=== PATIENT | female | born 1955 | race Caucasian/White ===

== ENCOUNTER 2019-06-11 12:37 | Emergency (ER) | payer OTHER ==
[2019-06-11 14:34] VITALS: BP 107/53; TEMP 101.4; O2SAT 95
== END 2019-06-11 14:25 | disposition home or self-care (01) ==
LOC: ER 12:37
DX: J06.9 Acute upper respiratory infection, unspecified (principal); Z20.828 Contact with and (suspected) exposure to other viral communicable diseases
CPT/HCPCS: 71045; 87070; 87081; 87804; 99284; U0001

== ENCOUNTER 2019-06-13 09:56 | Inpatient (IN) | payer OTHER ==
--- OUTSIDE RECORDS SUMMARY | 2019-06-13 09:58 | XMS REPORT ---
:1955 Author Organization [facility] t Address Formerly [facility], [facility] [place] [address] Care Team Providers Name Role Phone Unavailable Unavailable Unavailable Problems Condition Condition Condition Status Onset Resolution Last Treatin g Comments Name Details Category Date Date Treatment Clinician Date Primary Primary Problem Active osteoarthri osteoarthri tis of tis of right knee right knee Pain, Pain, Diagnosis Active joint, joint, knee, right knee, right Allergies, Adverse Reactions, Alerts This patient has no known allergies or adverse reactions. Medications Ordered Filled Start Stop Current Ordering Indication Dosage Frequency Signature Comments Components Medication Medication Date Date Medication? Clinician (SIG) Name Name Amlodipine Amlodipine Yes Gaudencio not Besylate Besylate Young defined Hydrochloro Hydrochloro Yes Gaudencio not thiazide thiazide Young defined losartan losartan Yes Gaudencio not Young defined Carisoprodo Carisoprodo Yes Gaudencio not l l Young defined [place] Yes Gaudencio not Young defined Diclofenac Diclofenac Yes Gaudencio not Sodium ER Sodium ER Young defined atorvastati atorvastati Yes Gaudencio not n n Young defined Encounters Start End Encounter Admission Attending Care Care Encounter Date/Time Date/Time Type Type Clinicians Facility Department ID 2018-10-29 2018-10-29 [id number] 13:30:00 13:30:00 [facility] 2018-10-22 2018-10-22 [id number] 15:00:00 15:00:00 [facility] 2018-10-15 2018-10-15 [id number] 08:00:00 08:00:00 [facility]
--- OUTSIDE RECORDS SUMMARY | 2019-06-13 09:59 | XMS REPORT ---
:1955 Author Organization [employer] Care Team Providers Name Role Phone Gaudencio Young Provider Role Unavailable Allergies, Adverse Reactions, Alerts Substance Reaction Event Type N.K.D.A. Info Not Available Non Drug Allergy Problems Problem Type Condition Code Onset Dates Condition Statu s Assessment Primary osteoarthritis of right M17.11 Active knee Problem Primary osteoarthritis of right M17.11 Active knee Assessment Pain, joint, knee, right M25.561 Act matt Medications Medication Code Code Instructions Start End Status Dosage System Date Date Amlodipine Besylate NDC 0 Active not defined losartan NDC 0 Active [place] [address]-89 Active no t 97-30 defined Carisoprodol [facility] 13360-07 Active not 34-01 [place] [address]-10 Active not 21-01 defined atorvastatin NDC 0 [place] [address]-84 Active not 20-11 defined Results No Known Results Summary Purpose [employer] Submission
[2019-06-13] MEDS ORDERED: NA CHLORIDE 0.9% 1,000 ML ONE ×3 (11:13→14:08)
[2019-06-13 11:37] LABS: Absolute Lymphocytes (CBC) 0.7 K/uL (0.7-4.9); Basophils % 0.3 % (0-1.3); Hematocrit 35.4 % (36.0-45.0); Lymphocytes % 7.9 % (15.3-44.8); MPV 7.2 fL (7.6-11.3)
[2019-06-13 11:41] LABS: Protime INR 1.16
--- NOTE | 2019-06-13 12:09 | RAD REPORT ---
EXAM DESCRIPTION: Maurizio Single View06/13/2019 11:55 am CLINICAL HISTORY: Cough COMPARISON: June 10 FINDINGS: The lungs appear clear of acute infiltrate. The heart is normal size IMPRESSION: No acute abnormalities displayed
[2019-06-13 12:13] LABS: Albumin 2.7 g/dL (3.4-5.0); Bilirubin Direct 0.5 mg/dL (0-0.2); Magnesium 1.5 mg/dL (1.8-2.4); Protein, Total 6.7 g/dL (6.4-8.2); Troponin (Emerg Dept Use Only) 0.4 ng/mL (0.0-0.045)
[2019-06-13 12:16] LABS: Potassium 2.7 mmol/L (3.5-5.1)
[2019-06-13 12:53] LABS: Platelet Estimate ADEQ; Urine White Blood Cell Casts OK
[2019-06-13 12:54] LABS: Blood Morphology Comment NOT SEEN (NOT SEEN)
[2019-06-13] MEDS ORDERED: POTASSIUM 25 MEQ EFFERV TAB ONE (12:54)
[2019-06-13] MEDS ORDERED: KCL 20 MEQ/100 mL IVPB 20 MEQ/100 ML BAG IV ONE (12:55)
[2019-06-13] MEDS ORDERED: Magnesium Sulfate 2gm IVPB 2 G/50 ML BAG IV ONE (12:55)
--- NOTE | 2019-06-13 13:11 | RAD REPORT ---
EXAM DESCRIPTION: CT - Chest Abdomen Pelvis W Cont - 06/13/2019 12:47 pm CLINICAL HISTORY: DYSPNEA, fever and cough for 4 days, abdominal and pelvic pain COMPARISON: No comparisons TECHNIQUE: Following dynamic enhancement using 100 milliliters nonionic IV contrast, axial imaging o f the chest, abdomen and pelvis was performed. Biphasic technique was utilized through the abdomen. Oral contrast was administered. All CT scans are performed using dose optimization technique as appropriate and may include automated exposure control or mA/KV adjustment according to patient size. FINDINGS: Lungs are clear of mass and infiltrate. No pleural effusion, pleural thickening or pneumot horax. No significant aortic or pulmonary arterial tree finding. Mediastinal and hilar regions show n o mass or abnormal lymphadenopathy. No chest wall mass or axillary lymphadenopathy. Normal size liver shows borderline to mild fatty infiltration. No suspicious liver lesion. Spleen and pancreas show no suspicious findings. Gallbladder and biliary tree are unremarkable. Gallstones can be occult on CT imaging. No hydronephrosis present. Right kidney shows a normal enhancement pattern. Heterogeneous enhancement of the left kidney is present. A cyst present in the posterior upper pole of the left kidney. No hyd ronephrosis. No obstructing or nonobstructing calculus. Lu of the left ureter show mild enhancemen t. Right ureter is unremarkable. Urinary bladder is difficult to assess. Bladder is mostly contracted . This accentuates the wall thickness. Lobulated uterus is present indicating multiple small fibroids. Primary ovarian process is not identi fied. No dilated bowel loops or focal bowel wall thickening. Diverticulosis present without diverticulitis. Postsurgical changes noted to the stomach. No acute GI findings seen. Slight wedging of the L1 body is present believed to be chronic. Posterior wall height is preserved. Anterior subluxation of 6 mm noted in the L4 body. This is secondary to prominent facet degenerative change. The L4-5 disc space show significant degenerative disc disease. Acute or pathologic bone proc ess is not seen. Prominent arterial tree calcifications are seen. No aneurysm or acute vascular finding. IMPRESSION: Acute left kidney pyelonephritis and left ureteritis. No abscess or emergent complicatio n. Urinary bladder is only partially filled. No cystitis can be confirmed. No right-sided pyelonephritis . No acute or significant CT chest finding. Borderline to mild fatty infiltration of the liver. Multi fibroid uterus. 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
--- NOTE | 2019-06-13 13:28 | EDPHYS ---
Physician Documentation [facility] Name: Rosario Pleitez Age: 64 yrs Sex: Female : 1955 Arrival Date: 06/13/2019 Time: 09:59 Bed 19 Private MD: None, None ED Physician Willie Hastings HPI: 06/12 11:14 This 64 yrs old Female presents to ER via Wheelchair with complaints of jr8 Fever, Cough. 11:14 The patient reports fever, not measured (subjective). Onset: The symptoms/episode jr8 began/occurred suddenly, 4 day(s) ago. Modifying factors: there are no obvious modifying factors. Associated signs and symptoms: Pertinent positives: chills, cough, decrease in taste . Severity of symptoms: At their worst the symptoms were moderate in the emergency department the symptoms are unchanged. The patient has not experienced similar symptoms in the past. The patient has been recently seen by a physician:. Patient was seen two days ago and tested for flu, strep, COVID, and had CXR completed. No acute findings and initial COVID results were negative. Came back to ED today for worsening of cough and persistent fevers . Historical: - Allergies: 10:16 No Known Allergies; bp - PMHx: 10:16 Arthritis; Hypertension; bp - Immunization history:: Adult Immunizations up to date. - Social history:: Smoking status: unknown. ROS: 11:14 Eyes: Negative for injury, pain, redness, and discharge, ENT: Negative for injury, jr8 pain, and discharge, Neck: Negative for injury, pain, and swelling, Cardiovascular: Negative for chest pain, palpitations, and edema, Abdomen/GI: Negative for abdominal pain, nausea, vomiting, diarrhea, and constipation, Back: Negative for injury and pain, MS/Extremity: Negative for injury and deformity, Skin: Negative for injury, rash, and discoloration, Neuro: Negative for headache, weakness, numbness, tingling, and seizure. 11:14 Constitutional: Positive for fatigue, fever, malaise. 11:14 Respiratory: Positive for cough. Exam: 11:14 Eyes: Pupils equal round and reactive to light, extra-ocular motions intact. Lids and jr8 lashes normal. Conjunctiva and sclera are non-icteric and not injected. Cornea within normal limits. Periorbital areas with no swelling, redness, or edema. ENT: Nares patent. No nasal discharge, no septal abnormalities noted. Tympanic membranes are normal and external auditory canals are clear. Oropharynx with no redness, swelling, or masses, exudates, or evidence of obstruction, uvula midline. Mucous membranes moist. Neck: Trachea midline, no thyromegaly or masses palpated, and no cervical lymphadenopathy. Supple, full range of motion without nuchal rigidity, or vertebral point tenderness. No Meningismus. Cardiovascular: Regular rate and rhythm with a normal S1 and S2. No gallops, murmurs, or rubs. Normal PMI, no JVD. No pulse deficits. Respiratory: Lungs have equal breath sounds bilaterally, clear to auscultation and percussion. No rales, rhonchi or wheezes noted. No increased work of breathing, no retractions or nasal flaring. Abdomen/GI: Soft, non-tender, with normal bowel sounds. No distension or tympany. No guarding or rebound. No evidence of tenderness throughout. Back: No spinal tenderness. No costovertebral tenderness. Full range of motion. Skin: Warm, dry with normal turgor. Normal color with no rashes, no lesions, and no evidence of cellulitis. MS/ Extremity: Pulses equal, no cyanosis. Neurovascular intact. Full, normal range of motion. Neuro: Awake and alert, GCS 15, oriented to person, place, time, and situation. Cranial nerves II-XII grossly intact. Motor strength 5/5 in all extremities. Sensory grossly intact. Cerebellar exam normal. Normal gait. 11:35 ECG was reviewed by the Attending Physician. jr8 Vital Signs: 10:13 BP 114 / 63; Pulse 103; Resp 19; Temp 99.7; Pulse Ox 97% ; Weight 77.11 kg; Height 5 bp ft. 1 in. (154.94 cm); 11:00 BP 111 / 74; Pulse 102; Resp 19; Pulse Ox 96% ; bp 11:15 BP 89 / 57; Pulse 97; Resp 16; Pulse Ox 96% ; bp 11:30 BP 97 / 52; Pulse 99; Resp 16; Pulse Ox 97% ; bp 12:00 BP 117 / 58; Pulse 97; Resp 16; Pulse Ox 99% ; bp 13:00 BP 103 / 53; Pulse 97; Resp 19; Pulse Ox 99% ; bp 14:00 BP 104 / 58; Pulse 92; Resp 16; Pulse Ox 95% ; bp 15:00 BP 97 / 56; Pulse 90; Resp 17; Pulse Ox 95% ; bp 16:00 BP 100 / 59; Pulse 80; Resp 16; Pulse Ox 96% ; bp 17:00 BP 103 / 59; Pulse 79; Resp 14; Temp 97.9; Pulse Ox 97% ; bp 10:13 Body Mass Index 32.12 (77.11 kg, 154.94 cm) bp MDM: 10:10 Patient medically screened. 13:25 Data reviewed: vital signs, nurses notes, lab test result(s), radiologic studies, CT rust scan, and as a result, I will admit patient. Data interpreted: Pulse oximetry: on room air is 99 %. Interpretation: normal. Counseling: I had a detailed discussion with the patient and/or guardian regarding: the historical points, exam findings, and any diagnostic results supporting the discharge/admit diagnosis, lab results, radiology results, the need for further work-up and treatment in the hospital. ED course: Discussed case with Dr. Sena. Will admit . 06/12 10:56 Order name: Basic Metabolic Panel; Complete Time: 12:06/12 10:56 Order name: CBC with Diff; Complete Time: 13:03 06/12 10:56 Order name: LFT's; Complete Time: 12:06/12 10:56 Order name: Magnesium; Complete Time: 12:06/12 10:56 Order name: NT PRO-BNP; Complete Time: 12:06/12 10:56 Order name: PT-INR; Complete Time: 11:44 06/12 10:56 Order name: Troponin (emerg Dept Use Only); Complete Time: 12:06/12 10:56 Order name: Procalcitonin; Complete Time: 12:06/12 11:08 Order name: COVID-19; Complete Time: 17:06 06/12 12:28 Order name: Blood Culture Adult (2) 06/12 12:28 Order name: Lactate; Complete Time: 13:44 06/12 12:37 Order name: Urine Microscopic Only; Complete Time: 14:57 06/12 12:54 Order name: CBC Smear Scan; Complete Time: 13:03 EDMS 06/12 14:16 Order name: Urinalysis EDMS 06/12 14:16 Order name: Basic Metabolic Panel EDMS 06/12 14:16 Order name: Basic Metabolic Panel EDMS 06/12 14:16 Order name: Basic Metabolic Panel EDMS 06/12 14:16 Order name: Basic Metabolic Panel EDMS 06/12 14:16 Order name: CBC with Automated Diff EDMS 06/12 14:16 Order name: CBC with Automated Diff EDMS 06/12 14:16 Order name: CBC with Automated Diff EDMS 06/12 14:16 Order name: CBC with Automated Diff EDMS 06/12 14:16 Order name: Hemoglobin A1c EDMS 06/12 14:16 Order name: Hemoglobin A1c EDMS 06/12 14:16 Order name: Magnesium EDMS 06/12 14:16 Order name: Magnesium EDMS 06/12 14:16 Order name: Magnesium EDMS 06/12 14:16 Order name: Magnesium EDMS 06/12 14:16 Order name: T4 Free EDMS 06/12 14:16 Order name: T4 Free EDMS 06/12 10:56 Order name: XRAY Chest (1 view); Complete Time: 12:13 06/12 10:56 Order name: EKG; Complete Time: 10:57 06/12 10:56 Order name: Cardiac monitoring; Complete Time: 11:33 06/12 10:56 Order name: EKG - Nurse/Tech; Complete Time: 11:33 06/12 10:56 Order name: IV Saline Lock; Complete Time: 11:34 06/12 10:56 Order name: Labs collected and sent; Complete Time: 11:34 06/12 10:56 Order name: O2 Per Protocol; Complete Time: 11:02 06/12 10:56 Order name: O2 Sat Monitoring; Complete Time: 11:02 06/12 12:31 Order name: CT Chest, Abdomen, Pelvis - W/Contrast; Complete Time: 13:16 06/12 14:16 Order name: CONS Physician Consult [facility] 06/12 14:16 Order name: Heart Healthy [facility] 06/12 14:16 Order name: Thyroid Stimulating Hormone [facility] 06/12 14:17 Order name: Thyroid Stimulating Hormone [facility] 06/12 14:17 Order name: Troponin I [facility] 06/12 14:17 Order name: Troponin I [facility] 06/12 14:17 Order name: Troponin I [facility] 06/12 14:17 Order name: Troponin I [facility] 06/12 14:29 Order name: Urine Dipstick--Ancillary (enter results) 06/12 14:39 Order name: Urine Dipstick-Ancillary; Complete Time: 14:57 EDMS EC:35 Rate is 101 beats/min. Rhythm is regular, Sinus tachycardia. QRS [place] is Normal. DC jr8 interval is normal at 132 msec. QRS interval is normal at 84 msec. QT interval is normal at 440 msec. No Q waves. T waves are Inverted in lead V1. T waves are Flattened in lead V2. No ST changes noted. Clinical impression: NSR w/ Non-specific ST/T Changes and No evidence of ischemia. Interpreted by me. Reviewed by me. Administered Medications: Discontinued: NS 0.9% 1000 ml IV at 250 ml/hr continuous 11:30 Drug: NS 0.9% 1000 ml Route: IV; Rate: 1000 ml; Site: right antecubital; bp 14:25 Follow up: IV Status: Completed infusion; IV Intake: 1000ml bp 12:45 Drug: Potassium Chloride 40 mEq Route: PO; bp 14:26 Follow up: Response: No adverse reaction bp 12:45 Drug: Potassium Chloride 20 mEq Route: IV; Rate: calculated rate; Site: right bp antecubital; 12:45 Drug: NS 0.9% 1000 ml Route: IV; Rate: 250 ml/hr; Site: right antecubital; bp 13:00 Drug: Magnesium Sulfate 2 grams Route: IVPB; Infused Over: 2 hrs; Site: right bp antecubital; 17:03 Follow up: IV Status: Completed infusion; IV Intake: 50ml bp 14:00 Drug: Rocephin 2 grams Route: IV; Rate: calculated rate; Site: right antecubital; bp 17:04 Follow up: IV Status: Completed infusion; IV Intake: 50ml bp 14:00 Drug: NS 0.9% (30 ml/kg) 30 ml/kg Route: IV; Rate: bolus; Site: right antecubital; bp 17:05 Follow up: IV Status: Completed infusion; IV Intake: 2300ml bp Disposition: 15:22 Co-signature as Attending Physician, Willie Hastings DO I agree with the assessment and ms3 plan of care. Attestation: The patient's history, exam findings, diagnostics, and a summary of any interventions or procedures was reviewed in detail with Gulshan BHATTI. Disposition: 06/13/19 13:27 Hospitalization ordered by Osman Sena for Inpatient Admission. Preliminary diagnosis are Severe sepsis with septic shock, Acute tubulo-interstitial nephritis, Acute upper respiratory infection, unspecified. - Bed requested for Intensive Care Unit. - Status is Inpatient Admission. bp - Condition is Fair. - Problem is new. - Symptoms have improved. Signatures: Dispatcher [employer] EDMS Almita Olivia RN RN dw Roszak, Josh, PA PA jr8 Tj Camarillo RN RN bp Botello, Elizabeth Willie Hastings DO DO ms3 Corrections: (The following items were deleted from the chart) 13:28 13:27 Hospitalization Ordered by Osman Sena DO for Inpatient Admission. Preliminary jr8 diagnosis is Severe sepsis with septic shock. Bed requested for Telemetry/MedSurg (Inpatient). Status is Inpatient Admission. Condition is Fair. Problem is new. Symptoms have improved. rust 14:17 13:28 06/13/2019 13:27 Hospitalization Ordered by Osman Sena DO for Inpatient eb Admission. Preliminary diagnosis is Severe sepsis with septic shock; Acute tubulo-interstitial nephritis; Acute upper respiratory infection, unspecified. Bed requested for Telemetry/MedSurg (Inpatient). Status is Inpatient Admission. Condition is Fair. Problem is new. Symptoms have improved. rust 14:20 14:17 06/13/2019 13:27 Hospitalization Ordered by Osman Sena DO for Inpatient dw Admission. Preliminary diagnosis is Severe sepsis with septic shock; Acute tubulo-interstitial nephritis; Acute upper respiratory infection, unspecified. Bed requested for Intensive Care Unit. Status is Inpatient Admission. Condition is Fair. Problem is new. Symptoms have improved. eb 17:27 14:20 06/13/2019 13:27 Hospitalization Ordered by Osman Sena DO for Inpatient bp Admission. Preliminary diagnosis is Severe sepsis with septic shock; Acute tubulo-interstitial nephritis; Acute upper respiratory infection, unspecified. Bed requested for Intensive Care Unit. Status is Inpatient Admission. Condition is Fair. Problem is new. Symptoms have improved. dw
--- NOTE | 2019-06-13 13:28 | ER ---
Nurse's Notes [facility] Name: Rosario Pleitez Age: 64 yrs Sex: Female : 1955 Arrival Date: 06/13/2019 Time: 09:59 Bed 19 Private MD: None, None Diagnosis: Severe sepsis with septic shock;Acute tubulo-interstitial nephritis;Acute upper respiratory infection, unspecified Presentation: 06/12 10:13 Chief complaint: Patient states: FEVER AND COUGH x4 DAYS. Coronavirus screen: Surgical bp mask placed on patient. Patient moved to private room, placed in contact and droplet isolation with eye protection until further assessment. Patient reports a cough. Patient reports a measured and/or subjective temperature greater than 100.4F. Ebola Screen: No symptoms or risks identified at this time. Initial Sepsis Screen: Does the patient meet any 2 criteria? HR > 90 bpm. No. Patient's initial sepsis screen is negative. Does the patient have a suspected source of infection? Yes: Productive cough/pneumonia. Risk Assessment: Do you want to hurt yourself or someone else? Patient reports no desire to harm self or others. Note PT TESTED NEGATIVE FOR COVID x3 DAYS AGO. Onset of symptoms is unknown. 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 10:13 Method Of Arrival: Wheelchair bp 10:13 Acuity: SHU 3 bp Triage Assessment: 10:16 General: Appears distressed, comfortable, obese, Behavior is cooperative, appropriate bp for age, anxious. Pain: Complains of pain in GENERALIZED [place]AL[place]IA. EENT: No deficits noted. Neuro: No deficits noted. Cardiovascular: No deficits noted. Respiratory: Reports cough that is. GI: No signs and/or symptoms were reported involving the gastrointestinal system. : No signs and/or symptoms were reported regarding the genitourinary system. Derm: No deficits noted. Musculoskeletal: No deficits noted. Historical: - Allergies: 10:16 No Known Allergies; bp - PMHx: 10:16 Arthritis; Hypertension; bp - Immunization history:: Adult Immunizations up to date. - Social history:: Smoking status: unknown. Screenin:17 Abuse screen: Denies threats or abuse. Denies injuries from another. Nutritional bp screening: No deficits noted. Tuberculosis screening: No symptoms or risk factors identified. Fall Risk None identified. Assessment: 10:17 General: SEE TRIAGE NOTE. bp 11:00 Reassessment: PROVIDER AT B/S FOR EVAL. bp 12:00 Reassessment: IVF INFUSING. PT INTERMITTENTLY HYPOTENSIVE, PROVIDER NOTIFIED. VS STABLE bp AT THIS TIME. 14:00 Reassessment: ICU ADMIT IN PROCESS. bp 15:24 Reassessment: ADMIT ON HOLD 2/2 STAFFING. bp 16:21 Reassessment: ADMIT ON HOLD FOR DR MEJIA RE-EVAL STATUS. bp 17:02 Reassessment: ADMIT CALLED TO ICU FOR RM 8. PT [place] WITH NURSE. bp Vital Signs: 10:13 BP 114 / 63; Pulse 103; Resp 19; Temp 99.7; Pulse Ox 97% ; Weight 77.11 kg; Height 5 bp ft. 1 in. (154.94 cm); 11:00 BP 111 / 74; Pulse 102; Resp 19; Pulse Ox 96% ; bp 11:15 BP 89 / 57; Pulse 97; Resp 16; Pulse Ox 96% ; bp 11:30 BP 97 / 52; Pulse 99; Resp 16; Pulse Ox 97% ; bp 12:00 BP 117 / 58; Pulse 97; Resp 16; Pulse Ox 99% ; bp 13:00 BP 103 / 53; Pulse 97; Resp 19; Pulse Ox 99% ; bp 14:00 BP 104 / 58; Pulse 92; Resp 16; Pulse Ox 95% ; bp 15:00 BP 97 / 56; Pulse 90; Resp 17; Pulse Ox 95% ; bp 16:00 BP 100 / 59; Pulse 80; Resp 16; Pulse Ox 96% ; bp 17:00 BP 103 / 59; Pulse 79; Resp 14; Temp 97.9; Pulse Ox 97% ; bp 10:13 Body Mass Index 32.12 (77.11 kg, 154.94 cm) bp ED Course: 09:59 Patient arrived in ED. mr 09:59 None, None is Private Physician. mr 10:00 Gulshan Canada PA is PHCP. jr8 10:00 Willie Hastings DO is Attending Physician. jr8 10:12 Tj Camarillo, AMADO is Primary Nurse. bp 10:15 Triage completed. bp 10:16 Arm band placed on. bp 10:17 Patient has correct armband on for positive identification. Bed in low position. Call bp light in reach. Side rails up X2. 11:20 Inserted saline lock: 20 gauge in right antecubital area, using aseptic technique. bp Blood collected. 11:37 EKG done, by clinical research tech. reviewed by Gulshan BHATTI. at1 11:55 XRAY Chest (1 view) In Process Unspecified. EDMS 12:48 CT Chest, Abdomen, Pelvis - W/Contrast In Process Unspecified. EDMS 13:27 Osman Mejia DO is Hospitalizing Provider. jr8 14:30 No provider procedures requiring assistance completed. Patient admitted, IV remains in bp place. Administered Medications: Discontinued: NS 0.9% 1000 ml IV at 250 ml/hr continuous 11:30 Drug: NS 0.9% 1000 ml Route: IV; Rate: 1000 ml; Site: right antecubital; bp 14:25 Follow up: IV Status: Completed infusion; IV Intake: 1000ml bp 12:45 Drug: Potassium Chloride 40 mEq Route: PO; bp 14:26 Follow up: Response: No adverse reaction bp 12:45 Drug: Potassium Chloride 20 mEq Route: IV; Rate: calculated rate; Site: right bp antecubital; 12:45 Drug: NS 0.9% 1000 ml Route: IV; Rate: 250 ml/hr; Site: right antecubital; bp 13:00 Drug: Magnesium Sulfate 2 grams Route: IVPB; Infused Over: 2 hrs; Site: right bp antecubital; 17:03 Follow up: IV Status: Completed infusion; IV Intake: 50ml bp 14:00 Drug: Rocephin 2 grams Route: IV; Rate: calculated rate; Site: right antecubital; bp 17:04 Follow up: IV Status: Completed infusion; IV Intake: 50ml bp 14:00 Drug: NS 0.9% (30 ml/kg) 30 ml/kg Route: IV; Rate: bolus; Site: right antecubital; bp 17:05 Follow up: IV Status: Completed infusion; IV Intake: 2300ml bp Intake: 14:25 IV: 1000ml; Total: 1000ml. bp 17:03 IV: 50ml; Total: 1050ml. bp 17:04 IV: 50ml; Total: 1100ml. bp 17:05 IV: 2300ml; Total: 3400ml. bp Outcome: 13:27 Decision to Hospitalize by Provider. jr8 14:29 Admitted to Med/surg accompanied by tech, via wheelchair, room 412, with chart, Report bp called to SALO FISCHER 14:29 Condition: stable 14:29 Instructed on the need for admit. 17:27 Patient left the ED. bp Signatures: Dispatcher [employer] EDAK Bebe Asif, Gulshan, PA PA jr8 Elizabeth Sparrow, ladle puller EKG Tat1 Tj Camarillo, RN RN bp Corrections: (The following items were deleted from the chart) 13:30 13:00 BP 117 / 58; Pulse 97bpm; Resp 19bpm; Pulse Ox 99%; bp bp
[2019-06-13] MEDS ORDERED: ONDANSETRON 4 MG/2 ML VIAL IV PRN (14:03)
[2019-06-13] MEDS ORDERED: CEFTRIAXONE/SWI 1gm 2 GM/20 ML SYR ONE (14:08)
--- NOTE | 2019-06-13 14:36 | EKG ---
Test Date: 2019-06-13 Test Time: 11:23:44 Wet Pour Supervisor: DANIEL MEASUREMENT RESULTS: Intervals: Rate: 101 KS: 132 QRSD: 84 QT: 340 QTc: 440 [place]: P: 55 KS: 132 QRS: 12 T: 55 INTERPRETIVE STATEMENTS: Sinus tachycardia Nonspecific ST abnormality Abnormal ECG Compared to ECG 09/17/2013 15:02:10 ST (T wave) deviation now present Sinus rhythm no longer present Electronically Signed On 06-13-19 14:35:31 CDT by Wyatt Saha
[2019-06-13 14:38] LABS: Urine Blood 3+ (NEG); Urine Glucose NEGATIVE (NEG); Urine Protein 2+ (NEG)
[2019-06-13 14:46] LABS: Urine Bacteria 20-50 /HPF (<20); Urine RBC 20-50 /HPF (NONE SEEN)
[2019-06-13 14:47] LABS: Urine Culture Reflex Order REFLEXED
--- NOTE | 2019-06-13 15:55 | P.HP ---
Certification for Inpatient With expected LOS: >2 Midnights Patient will require the following post-hospital care: None Practitioner: I am a practitioner with admitting privileges, knowledge of patient current condition, hospital course, and medical plan of care. Services: Services provided to patient in accordance with Admission requirements found in Title 42 Section 412.3 of the Code of Federal Regulations <Fidel Gan - Last Filed: 06/13/19 15:45> Patient History Date of Service: 06/13/19 Primary Care Provider: None Reason for admission: Acute pyelonephritis History of Present Illness: 64-year-old female patient with history of hypertension presents to the emergency department with chief complaint of fever, malaise, cough, diarrhea. Patient reports that for the last 2 weeks she has been having these symptoms. Patient was evaluated approximately 1 week ago in the emergency department and was tested for strep, influenza, Hernandez virus 19, and had a chest x-ray, all of which were negative. Patient persisted to have worsening of symptoms at home and therefore returned to the emergency department. During her evaluation in the emergency department patient was found to have acute pyelonephritis of the left kidney, hypotension, hypomagnesemia, hypokalemia, elevated troponin, elevated BNP. Pro calcitonin was also markedly elevated at 74. Liver enzymes also slightly elevated. ER provider wishes to admit the patient is new patient for further evaluation management of her condition. When I saw the patient in the emergency department she is in no distress, although her blood pressure was moderately low in the 90s over 60s. Patient was not tachycardic at that time. Patient denied any urinary symptoms but did report some mild left back pain. Patient reports that she has a medical history only including hypertension but she has not been seeing a primary care doctor. Reports that she has not been taking blood pressure medication for the past week as she has not been feeling well. Initially patient's hernandez virus 19 testing was negative but due to her symptoms she was retested in the emergency de partment. Patient will be admitted to the ICU for further evaluation and management of her acute pyelonephritis, electrolyte imbalances, and abnormal cardiac markers. Anticipate clinical improvement next 2 3 days, anticipate patient can be downgraded from the ICU likely tonight or tomorrow.. Home medications list reviewed: Yes - Past Medical/Surgical History Has patient received pneumonia vaccine in the past: No Diabetic: No -: Diverticulitis -: Hypertension -: gastroplasty 30 yrs ago 1985 -: tummy tuck 15 years ago 2006 -: left breast cyst removed 10 years ago -: Colposcopy 2016 Psychosocial/ Personal History: Patient lives at home with her , reports adequate in-home care. - Family History Mother -: Heart disease - Social History Smoking Status: Never smoker Alcohol use: No CD- Drugs: No Caffeine use: No Place of Residence: Home <Fidel Gan - Last Filed: 06/13/19 15:45> Date of Service: 06/13/19 History of Present Illness: Examination, evaluation and Plan of care address in detail with nurse practitioner. <Osman Sena - Last Filed: 06/13/19 16:21> Allergies No Known Allergies Allergy (Verified 06/26/16 11:55) Home Medications: Estradiol [Estrace] 42.5 gm VG DAILY 06/26/16 Triamcinolone 0.025% Crm [Kenalog 0.025% Cream] 0.5 appl TOP BID 06/26/16 Physical Examination - Studies Laboratory Data (last 24 hrs) 06/13/19 11:25: PT 13.7 H, INR 1.16 06/13/19 11:25: WBC 8.6, Hgb 12.0, Hct 35.4 L, Plt Count 199 06/13/19 11:25: Sodium 135 L, Potassium 2.7 L*, BUN 12, Creatinine 1.06, Glucose 144 H, Magnesium 1.5 L, Total Bilirubin 1.0, AST 152 H, ALT 146 H, Alkaline Phosphatase 169 H <Fidel Gan - Last Filed: 06/13/19 15:45> - Studies Laboratory Data (last 24 hrs) 06/13/19 11:25: PT 13.7 H, INR 1.16 06/13/19 11:25: WBC 8.6, Hgb 12.0, Hct 35.4 L, Plt Count 199 06/13/19 11:25: Sodium 135 L, Potassium 2.7 L*, BUN 12, Creatinine 1.06, Glucose 144 H, Magnesium 1.5 L, Total Bilirubin 1.0, AST 152 H, ALT 146 H, Alkaline Phosphatase 169 H Microbiology Data (last 24 hrs): 06/13/19 11:25 Nasopharnyx Coronavirus COVID-19 PCR - Final <Osman Sena - Last Filed: 06/13/19 16:21> Assessment and Plan - Plan Assessment: Sepsis secondary to acute left-sided pyelonephritis Elevated troponin and BNP like related to sepsis Hypotension likely related to sepsis Hypomagnesemia and hypokalemia Elevated liver enzymes likely secondary to fatty liver disease Hypertension Plan: Sepsis secondary to acute left-sided pyelonephritis: Blood and urine cultures obtained, patient given sepsis fluids and Rocephin in the emergency department. Patient to be monitored in the ICU initially due to multiple readings with low blood pressure. Patient may be downgraded once stable. Blood pressure to be monitored closely. Will continue fluids and antibiotics and recheck labs in the morning. Medications for pain and nausea to be supplied. DVT prophylaxis with heparin 5000 units twice daily. Patient will have follow up sepsis screening completed. Elevated troponin and BNP like related to sepsis: Cardiology has been consulted to evaluate alternative causes to elevation in troponin and BNP. Echocardiogram ordered. Patient placed on telemetry during her admission. Hypotension likely related to sepsis: Patient to finish her sepsis fluids and be continued on maintenance fluids. If patient's blood pressure does not maintain were improve after sepsis fluids use of vasopressors may need to be considered. Will continue to monitor blood pressure closely. Hypomagnesemia and hypokalemia: Patient will be placed on magnesium and potassium replacement protocols. Patient remained on telemetry. Will recheck labs in morning. Elevated liver enzymes likely secondary to fatty liver: Mild fatty liver infiltrate seen on CT scan. Will provide education for patient with possible dietary changes. Patient can be seen by GI on an outpatient basis for further evaluation. Hypertension: Will obtain and verify home medication, will hold blood pressure medication at this time the patient is medically stable then re-evaluate their use. Discharge Plan: Home Plan to discharge in: 72 Hours - Advance Directives Does patient have a Living Will: No Does patient have a Durable POA for Healthcare: No - Code Status/Comfort Care Code Status Assessed: Yes (Patient is full code) Time Spent Managing Pts Care (In Minutes): 55 <Fidel Gan - Last Filed: 06/13/19 15:45> - Plan Impression: Fever secondary to sepsis related to acute left-sided pyelonephritis with ureteritis Elevated troponin with BMP likely related to sepsis Hypo magnesium/hypokalemia Elevated liver functions likely secondary to fatty liver Hypertension Lobulated uterus with fibroids Plan: Fever secondary to sepsis related to acute left-sided pyelonephritis with ureteritis: Patient admitted to ICU. Continue IV antibiotic therapy and aggressive wound care. Sepsis protocol in place. Continue DVT prophylaxis. Await blood in urine culture results. Continue to monitor closely daily. Will consult cardiology due to elevated troponin. Likely related to sepsis. Will obtain echocardiogram. Anticipate improvement over the next 48-72 hr. Elevated troponin with BMP likely related to sepsis: Will consult Cardiology. Will monitor troponin. Will order echocardiogram. Await further recommendations. Hypo magnesium/hypokalemia: Will monitor and replace electrolytes. Elevated liver functions likely secondary to fatty liver: Will educate further. Patient may require GI evaluation as an outpatient. Hypertension: Hold blood pressure medication at this time. Lobulated uterus with fibroids: Patient may follow up with gynecology as an outpatient. <Osman Sena - Last Filed: 06/13/19 16:21>
[2019-06-13] MEDS ORDERED: TRAMADOL HCL 50 MG TAB PO PRN (17:15)
[2019-06-13] MEDS: NA CHLORIDE 0.9% 1,000 ML IV SCH (18:32)
[2019-06-13] MEDS: SWI IVP SCH (20:16)
[2019-06-13] MEDS: FAMOTIDINE 20 MG TAB PO SCH (20:16)
[2019-06-13] MEDS: CEFTRIAXONE IVP SCH (20:16)
[2019-06-13] MEDS: HEPARIN 5000 UNIT/ML 1 ML VIAL SQ SCH (20:16)
[2019-06-13] MEDS ORDERED: DIPHENHYDRAMINE 25 MG TAB/CAP PO ONE (21:06)
[2019-06-13] MEDS ORDERED: ALBUMIN HUMAN 25% 100 ML IV ONE (23:55)
[2019-06-13] MEDS ORDERED: NA CHLORIDE 0.9% 500 ML IV ONE (23:56)
[2019-06-14 00:05] LABS: Magnesium 2.4 mg/dL (1.8-2.4); Potassium 3.8 mmol/L (3.5-5.1)
[2019-06-14] MEDS ORDERED: POTASSIUM CL SA 10 MEQ TAB PO ONE (00:20)
[2019-06-14] MEDS: NA CHLORIDE 0.9% 1,000 ML IV SCH ×3 (02:59→19:56)
[2019-06-14 04:03] LABS: Absolute Lymphocytes (CBC) 1.7 K/uL (0.7-4.9); Basophils % 0.2 % (0-1.3); Hematocrit 28.5 % (36.0-45.0); Lymphocytes % 18.1 % (15.3-44.8); MPV 7.4 fL (7.6-11.3); RBC Red Blood Cell Count 3.28 M/uL (3.86-4.86)
[2019-06-14 04:25] LABS: BUN Blood Urea Nitrogen 11 mg/dL (7-18); Bicarbonate 25 mmol/L (21-32); Glucose Level 104 mg/dL (74-106); HDL Cholesterol 29 mg/dL (40-60); LDL Cholesterol, Calculated 66 (<130); Magnesium 2.2 mg/dL (1.8-2.4); Potassium 3.9 mmol/L (3.5-5.1); Sodium Level 144 mmol/L (136-145); Thyroid Stimulating Hormone 0.945 uIU/mL (0.360-3.740)
[2019-06-14] MEDS: HYDROCODONE/APAP 7.5/325 MG TAB PO PRN ×2 (05:33→20:00)
--- NOTE | 2019-06-14 05:53 | P.PN ---
Subjective Date of Service: 06/13/19 Subjective: Improving Patient is clinically feeling better. Continue to monitor closely. Review of Systems 10-point ROS is otherwise unremarkable Physical Examination - Vital Signs Temperature: 98 F Blood Pressure: 95/54 Pulse: 73 Respirations: 20 Pulse Ox (%): 100 - Physical Exam General: Alert, In no apparent distress, Oriented x3 Respiratory: Clear to auscultation bilaterally, Normal air movement - Studies Laboratory Data (last 24 hrs) 06/13/19 11:25: PT 13.7 H, INR 1.16 06/13/19 11:25: WBC 8.6, Hgb 12.0, Hct 35.4 L, Plt Count 199 06/13/19 11:25: Sodium 135 L, Potassium 2.7 L*, BUN 12, Creatinine 1.06, Glucose 144 H, Magnesium 1.5 L, Total Bilirubin 1.0, AST 152 H, ALT 146 H, Alkaline Phosphatase 169 H Microbiology Data (last 24 hrs): 06/13/19 11:25 Nasopharnyx Coronavirus COVID-19 PCR - Final Assessment & Plan - Problems (Diagnosis) (1) Sepsis Current Visit: Yes Status: Acute (2) Pyelonephritis Current Visit: Yes Status: Acute (3) Fatty liver disease, nonalcoholic Current Visit: Yes Status: Acute - Plan Plan: 1. Continue with hydration and IV antibiotics 2. Monitor labs closely 3. Continue monitoring LFTs 4. Repeat procalcitonin level 5. Await blood culture results 6. GI and DVT prophylaxis - Advance Directives Does patient have a Living Will: No Does patient have a Durable POA for Healthcare: No Sepsis Focused Assessment - Focused Assessment Complete? Sepsis Focused Assessment Completed?: Yes - Sepsis Screen Result Severe Sepsis: Positive - Evaluation Current stage of sepsis: Severe sepsis - Vital Signs Reviewed: Yes Temperature: 98 F Heart rate: 73 Blood Pressure: 100/54 Respiratory Rate: 20 O2 Sat by Pulse Oximetry: 100 - Examination Date exam was performed: 06/13/19 Time exam was performed: 20:52 Heart: Regular rate/rhythm Lungs: Clear bilaterally Peripheral pulses: 2+ Slightly diminished Peripheral pulse location: Radial Capillary refill: <2 Seconds Skin examination: Normal turgor
[2019-06-14 06:40] VITALS: BMI 33.3
[2019-06-14] MEDS ORDERED: POTASSIUM 25 MEQ EFFERV TAB PO ONE (08:00)
[2019-06-14] MEDS ORDERED: NA CHLORIDE 0.9% 500 ML IV ONE (08:00)
[2019-06-14] MEDS: CEFTRIAXONE IVP SCH ×2 (09:15→20:00)
[2019-06-14] MEDS: SWI IVP SCH ×2 (09:15→20:00)
[2019-06-14] MEDS: HEPARIN 5000 UNIT/ML 1 ML VIAL SQ SCH ×2 (09:16→20:01)
[2019-06-14] MEDS: FAMOTIDINE 20 MG TAB PO SCH ×2 (09:16→20:01)
--- NOTE | 2019-06-14 10:39 | P.PN ---
Subjective Date of Service: 06/14/19 Primary Care Provider: None Chief Complaint: Acute pyelonephritis Subjective: Improving Physical Examination - Vital Signs Temperature: 98 F Blood Pressure: 106/51 Pulse: 76 Respirations: 17 Pulse Ox (%): 97 - Physical Exam General: Alert, In no apparent distress, Cooperative HEENT: Atraumatic Neck: Supple Respiratory: Clear to auscultation bilaterally, Normal air movement Cardiovascular: Normal pulses, Regular rate/rhythm Gastrointestinal: Normal bowel sounds, Soft and benign, Non-distended, Other ( Pain to the abdomen and flank improved.) Neurological: Normal speech, Normal strength at 5/5 x4 extr, Normal tone - Studies Laboratory Data (last 24 hrs) 06/13/19 11:25: PT 13.7 H, INR 1.16 06/13/19 11:25: WBC 8.6, Hgb 12.0, Hct 35.4 L, Plt Count 199 06/13/19 11:25: Sodium 135 L, Potassium 2.7 L*, BUN 12, Creatinine 1.06, Glucose 144 H, Magnesium 1.5 L, Total Bilirubin 1.0, AST 152 H, ALT 146 H, Alkaline Phosphatase 169 H Microbiology Data (last 24 hrs): 06/13/19 11:25 Nasopharnyx Coronavirus COVID-19 PCR - Final Medications List Reviewed: Yes Assessment & Plan Discharge Plan: Home Plan to discharge in: 72 Hours Physician Review Additional Text: Assessment: Sepsis secondary to acute left-sided pyelonephritis Elevated troponin and BNP like related to sepsis Hypotension likely related to sepsis Hypomagnesemia and hypokalemia Elevated liver enzymes likely secondary to fatty liver disease Hypertension Plan: Sepsis secondary to acute left-sided pyelonephritis: Orthostatics stable. Continue aggressive IV fluids. Blood and urine cultures obtained. Continue with antibiotic therapy. Will monitor closely. Anticipate improvement over the next couple of days. Will consider transfer to the floor once stable. Elevated troponin and BNP like related to sepsis: Cardiology has been consulted to evaluate alternative causes to elevation in troponin and BNP. Echocardiogram ordered. Patient placed on telemetry during her admission. Hypotension likely related to sepsis: This has improved. Continue with IV fluids. Hypomagnesemia and hypokalemia: Patient will be placed on magnesium and potassium replacement protocols. Patient remained on telemetry. Will recheck labs in morning. Elevated liver enzymes likely secondary to fatty liver: Mild fatty liver infiltrate seen on CT scan. Will provide education for patient with possible dietary changes. Patient can be seen by GI on an outpatient basis for further evaluation. Hypertension: Will obtain and verify home medication, will hold blood pressure medication at this time the patient is medically stable then re-evaluate their use. Time Spent Managing Pts Care (In Minutes): 55
[2019-06-14 13:56] LABS: C.diff Antigen/Toxin Ag neg : Tox neg (NEG : NEG)
--- NOTE | 2019-06-14 15:06 | CON ---
Date of Consultation: 06/14/[address] Sena on 06/13/2019. I saw the patient on 06/14/2019. Reason For Consultation: Elevated troponin. History Of Present Illness: Ms. Pleitez is a 64-year-old woman who has a history of hypertension and d egenerative joint disease, came into the hospital with acute pyelonephritis, ureteritis and sepsis. Potassium was 2.7 and magnesium was 1.5. Hemoglobin was 9.6. Her EKG showed nonspecific changes. H er chest x-ray was negative. Her troponin was positive at 0.40 with a BNP of 1733. Her procalcitoni n was 74 and she was been treated with fluid hydration because of hypotension, antibiotics, and has a lready improved. She denied having any chest pain. Had some nausea and diaphoresis, but no vomiting . Denied having any shortness of breath, palpitations, or syncope. Past Medical History: As stated above. Allergies: NONE. Review of Systems: Negative. Social History: Negative. Family History: Noncontributory. Medications: At home include Lipitor, losartan, Norvasc, and hydrochlorothiazide. Physical Examination: General: She was in normal sinus rhythm. Blood pressure was 100/60, afebrile. HEENT: Negative. Neck: Supple without any bruit, lymphadenopathy, JVD, or thyromegaly. Chest: Clear to auscultation and percussion. Cardiac: Revealed a regular rhythm and rate. No murmurs, gallops, or rubs. Abdomen: Benign. Extremities: Revealed no clubbing, cyanosis, or edema. Diagnostic Data: All stated earlier. Impression And Plan: 1.Elevated troponin, most likely secondary to sepsis. 2.Elevated BNP, probably secondary to sepsis. 3.Hypokalemia, supplemented. 4.Hypomagnesemia, supplemented. 5.Mild anemia. 6.Acute pyelonephritis and urethritis, on IV hydration and antibiotics. She is already improving. 7.Hypertension, well controlled now. 8.Dyslipidemia, on Lipitor at home. Ms. Pleitez has multiple cardiac risk factors for heart disease including her hypertension and her dysl ipidemia. Her elevated troponin and BNP are most likely secondary to sepsis. Nevertheless, I think this needed to be further investigated down the road. She needs to have an echocardiogram and I will make an arrangement for her eventually to have an outpatient Lexiscan. I will continue to follow [facility] PATEL Voice ID: [id number] Report ID: [id number]
[2019-06-15] MEDS: NA CHLORIDE 0.9% 1,000 ML IV SCH ×2 (04:16→13:35)
[2019-06-15 05:15] LABS: Absolute Lymphocytes (CBC) 2.3 K/uL (0.7-4.9); Basophils % 0.3 % (0-1.3); Hematocrit 29.6 % (36.0-45.0); MPV 7.7 fL (7.6-11.3)
[2019-06-15 05:30] LABS: BUN Blood Urea Nitrogen 9 mg/dL (7-18); Bicarbonate 24 mmol/L (21-32); Glucose Level 97 mg/dL (74-106); Magnesium 2.1 mg/dL (1.8-2.4); Potassium 3.4 mmol/L (3.5-5.1); Sodium Level 142 mmol/L (136-145)
[2019-06-15] MEDS ORDERED: POTASSIUM CL SA 10 MEQ TAB PO ONE (05:50)
[2019-06-15] MEDS: HEPARIN 5000 UNIT/ML 1 ML VIAL SQ SCH ×2 (08:07→20:07)
[2019-06-15] MEDS: CEFTRIAXONE IVP SCH ×2 (08:07→20:07)
[2019-06-15] MEDS: FAMOTIDINE 20 MG TAB PO SCH ×2 (08:07→20:07)
[2019-06-15] MEDS: SWI IVP SCH ×2 (08:07→20:07)
[2019-06-15 08:48] VITALS: O2SAT 97
--- NOTE | 2019-06-15 10:52 | PN ---
Date of Progress Note: 06/15/2019 Ms. Pleitez was admitted with sepsis secondary to severe pyelonephritis. She has a history of hyperten walker. Her troponin was elevated when she came in. Her potassium today was 3.4, hemoglobin is 9.9. Her creatinine is 0.51. Her troponin has decreased to 0.04. Her blood pressure is 133/67. She is i n sinus rhythm. Echocardiogram is pending tomorrow because of the elevated troponin, but I believe t his is secondary to her sepsis. We will see what the echo shows before making final decisions. No c hange in medical therapy for now. NB/MODL Voice ID: [id number] Report ID: [id number]
--- NOTE | 2019-06-15 13:42 | P.PN ---
Subjective Date of Service: 06/15/19 Primary Care Provider: None Chief Complaint: Acute pyelonephritis Subjective: Improving, Doing well Physical Examination - Vital Signs Temperature: 97.5 F Blood Pressure: 147/74 Pulse: 65 Respirations: 18 Pulse Ox (%): 98 - Physical Exam General: Alert, Cooperative HEENT: Atraumatic Neck: Supple Respiratory: Clear to auscultation bilaterally, Normal air movement Cardiovascular: Normal pulses, Regular rate/rhythm Gastrointestinal: Normal bowel sounds, Soft and benign, Non-distended Neurological: Normal speech, Normal strength at 5/5 x4 extr, Normal tone, Normal affect - Studies Medications List Reviewed: Yes Assessment & Plan Discharge Plan: Home Plan to discharge in: 24 Hours Physician Review Additional Text: Assessment: Sepsis secondary to acute left-sided pyelonephritis/bacteremia, urine culture positive for E coli, blood culture pending Elevated troponin and BNP like related to sepsis Hypotension likely related to sepsis Hypomagnesemia and hypokalemia Elevated liver enzymes likely secondary to fatty liver disease Hypertension Plan: Sepsis secondary to acute left-sided pyelonephritis/bacteremia, urine culture positive for E coli, blood culture pending: Patient doing better today. Will adjust IV fluids. Continue IV antibiotic therapy. Await blood culture results. Anticipate discharge in the next day once cultures are back. Elevated troponin and BNP like related to sepsis: Spoke with cardiology. Will obtain echocardiogram to further evaluate. No further intervention likely required. Hypotension likely related to sepsis: This has improved. Continue with IV fluids. Hypomagnesemia and hypokalemia: Patient will be placed on magnesium and potassium replacement protocols. Patient remained on telemetry. Will recheck labs in morning. Elevated liver enzymes likely secondary to fatty liver: Mild fatty liver infiltrate seen on CT scan. Will provide education for patient with possible dietary changes. Patient can be seen by GI on an outpatient basis for further evaluation. Hypertension: Restart home medication. Time Spent Managing Pts Care (In Minutes): 55
[2019-06-15] MEDS: LOSARTAN POTASSIUM 50 MG TABLET PO SCH (14:03)
[2019-06-15] MEDS: AMLODIPINE 10 MG TAB PO SCH (14:03)
[2019-06-15] MEDS: ATORVASTATIN 40 MG TAB PO SCH (14:03)
[2019-06-15] MEDS: NACHLORIDE 0.45% 1,000 ML IV SCH (14:04)
[2019-06-15] MEDS: HYDROCODONE/APAP 7.5/325 MG TAB PO PRN (20:07)
[2019-06-16] MEDS: NACHLORIDE 0.45% 1,000 ML IV SCH ×2 (01:21→09:20)
[2019-06-16 04:13] LABS: Absolute Lymphocytes (CBC) 3.2 K/uL (0.7-4.9); Basophils % 0.4 % (0-1.3); Hematocrit 31.4 % (36.0-45.0); Lymphocytes % 37.1 % (15.3-44.8); MPV 7.8 fL (7.6-11.3); RBC Red Blood Cell Count 3.61 M/uL (3.86-4.86)
[2019-06-16 04:31] LABS: BUN Blood Urea Nitrogen 7 mg/dL (7-18); Bicarbonate 28 mmol/L (21-32); Glucose Level 97 mg/dL (74-106); Potassium 4.2 mmol/L (3.5-5.1); Sodium Level 141 mmol/L (136-145)
[2019-06-16] MEDS: ACETAMINOPHEN 500 MG TAB PO PRN ×2 (04:53→11:33)
[2019-06-16 06:47] VITALS: BP 139/71; TEMP 97.4
[2019-06-16] MEDS: FAMOTIDINE 20 MG TAB PO SCH (08:06)
[2019-06-16] MEDS: LOSARTAN POTASSIUM 50 MG TABLET PO SCH (08:06)
[2019-06-16] MEDS: SWI IVP SCH (08:06)
[2019-06-16] MEDS: CEFTRIAXONE IVP SCH (08:06)
[2019-06-16] MEDS: ATORVASTATIN 40 MG TAB PO SCH (08:06)
[2019-06-16] MEDS: AMLODIPINE 10 MG TAB PO SCH (08:07)
[2019-06-16] MEDS: HEPARIN 5000 UNIT/ML 1 ML VIAL SQ SCH (08:08)
[2019-06-16] MEDS ORDERED: HOME MED 1 EA UNK (Losartan Potassium [Losartan Potassium] 25 MG) PO SCH (09:00)
--- NOTE | 2019-06-16 09:23 | P.DS ---
Admission Date: 06/13/19 Discharge Date: 06/16/19 Primary Care Provider: None Disposition: ROUTINE DISCHARGE Discharge Condition: GOOD Reason for Admission: Acute pyelonephritis Consultations: Cardiology-Dr. Saha Procedures: ECHO: Done, Results pending. CT scan: FINDINGS: Lungs are clear of mass and infiltrate. No pleural effusion, pleural thickening or pneumothorax. No significant aortic or pulmonary arterial tree finding. Mediastinal and hilar regions show no mass or abnormal lymphadenopathy. No chest wall mass or axillary lymphadenopathy. Normal size liver shows borderline to mild fatty infiltration. No suspicious liver lesion. Spleen and pancreas show no suspicious findings. Gallbladder and biliary tree are unremarkable. Gallstones can be occult on CT imaging. No hydronephrosis present. Right kidney shows a normal enhancement pattern. Heterogeneous enhancement of the left kidney is present. A cyst present in the posterior upper pole of the left kidney. No hydronephrosis. No obstructing or nonobstructing calculus. Lu of the left ureter show mild enhancement. Right ureter is unremarkable. Urinary bladder is difficult to assess. Bladder is mostly contracted. This accentuates the wall thickness. Lobulated uterus is present indicating multiple small fibroids. Primary ovarian process is not identified. No dilated bowel loops or focal bowel wall thickening. Diverticulosis present without diverticulitis. Postsurgical changes noted to the stomach. No acute GI findings seen. Slight wedging of the L1 body is present believed to be chronic. Posterior wall height is preserved. Anterior subluxation of 6 mm noted in the L4 body. This is secondary to prominent facet degenerative change. The L4-5 disc space show significant degenerative disc disease. Acute or pathologic bone process is not seen. Prominent arterial tree calcifications are seen. No aneurysm or acute vascular finding. IMPRESSION: Acute left kidney pyelonephritis and left ureteritis. No abscess or emergent complication. Urinary bladder is only partially filled. No cystitis can be confirmed. No right-sided pyelonephritis. No acute or significant CT chest finding. Borderline to mild fatty infiltration of the liver. Multi fibroid uterus. No acute VIDEO GAME TESTER or GI process. Medical Problem List: Sepsis secondary to acute left-sided pyelonephritis/ureteritis/bacteremia, urine culture positive for E coli, blood culture pending Elevated troponin and BNP like related to sepsis Hypotension likely related to sepsis Hypomagnesemia and hypokalemia Elevated liver enzymes likely secondary to fatty liver disease/medication Hypertension Chronic back pain with degenerative changes to the lumbar spine Brief History of Present Illness: Examination, evaluation and Plan of care address in detail with nurse practitioner. Hospital Course: Patient presented with sepsis secondary to acute left pyelonephritis/ureteritis/bacteremia. Patient was given IV antibiotic therapy and IV fluids. Patient responded well. Urine culture was positive for E coli. Blood culture was positive 2/4 with pantoea agglomerans. At discharge she is without significant nausea, vomiting or abdominal pain. At discharge she will continue with Bactrim DS 1 pill twice daily for 11 more days. Will also provide lactobacillus twice daily. Recommend recheck blood culture and urine culture after treatment to monitor resolution. Recommend follow up with a PCP to follow up this hospitalization and continue her care. Patient may require Urology evaluation in the future if symptoms persist. Patient had elevated troponin upon admission. Cardiology was consulted. Echocardiogram performed. This was likely related to sepsis. Further cardiac intervention was required. Recommend follow up with cardiology in 1-2 weeks to follow up this hospitalization. Patient will require outpatient cardiac evaluation with cardiac stress test to further evaluate especially with her risk factors of hypertension. Patient with electrolyte abnormalities. This was likely related to sepsis. This corrected with protocol. Patient had elevated liver function. This was likely related to sepsis. CT scan did show mild fatty liver. Will provide education on fatty liver. Patient may benefit with GI evaluation as an outpatient. Patient with hypertension. Medications were held initially due to sepsis. Patient now back on her regular regimen. At discharge she will continue with Norvasc 10 mg daily, losartan 25 mg daily, and hydrochlorothiazide 12.5 mg daily. Recommend to maintain blood pressure less 150/80. Further adjustment can be done by her PCP. Patient with hyperlipidemia. Patient currently on Lipitor 40 mg daily. With noted elevated liver function, will recommend to hold Lipitor and recheck fasting lipid and liver function tests in 1-2 weeks. Her fasting lipid panel was well controlled during her hospital stay. May need to at wave risk and benefit of restarting Lipitor if liver function still elevated as an outpatient. Patient with chronic back pain. CT scan showed degenerative changes to the lumbar spine. Patient would benefit with pain management evaluation as an outpatient. Will recommend to not use any further nonsteroidal anti-infla mmatories. Patient may take Tylenol as needed. Vital Signs/Physical Exam: Temp Pulse Resp BP Pulse Ox 97.4 F 71 15 139/71 99 06/16/19 04:00 06/16/19 08:07 06/16/19 04:00 06/16/19 08:07 06/16/19 04:00 General: Alert, In no apparent distress, Oriented x3, Cooperative HEENT: Atraumatic Neck: Supple Respiratory: Clear to auscultation bilaterally, Normal air movement Cardiovascular: Normal pulses, Regular rate/rhythm Gastrointestinal: Normal bowel sounds, Soft and benign, Non-distended, No tenderness, No masses, No rebound, No guarding Musculoskeletal: No erythema, No tenderness, No warmth Integumentary: No tenderness/swelling, No erythema, No warmth, No cyanosis Neurological: Normal speech, Normal strength at 5/5 x4 extr, Normal tone, Normal affect Laboratory Data at Discharge: WBC 8.8 K/uL (4.3-10.9) 06/16/19 03:30 Hgb 10.6 g/dL (12.0-15.0) L 06/16/19 03:30 Hct 31.4 % (36.0-45.0) L 06/16/19 03:30 Plt Count 260 K/uL (152-406) 06/16/19 03:30 PT 13.7 SECONDS (9.5-12.5) H 06/13/19 11:25 INR 1.16 06/13/19 11:25 Sodium 141 mmol/L (136-145) 06/16/19 03:30 Potassium 4.2 mmol/L (3.5-5.1) 06/16/19 03:30 BUN 7 mg/dL (7-18) 06/16/19 03:30 Creatinine 0.51 mg/dL (0.55-1.3) L 06/16/19 03:30 Glucose 97 mg/dL (74-106) 06/16/19 03:30 Magnesium 2.0 mg/dL (1.8-2.4) 06/16/19 03:30 Total Bilirubin 1.0 mg/dL (0.2-1.0) 06/13/19 11:25 AST 152 U/L (15-37) H 06/13/19 11:25 ALT 146 U/L (12-78) H 06/13/19 11:25 Alkaline Phosphatase 169 U/L (45-117) H 04/24/20 11:25 Troponin I 0.04 ng/mL (0.0-0.045) 06/14/19 11:44 Triglycerides 136 mg/dL (<150) 06/14/19 03:45 Cholesterol 122 mg/dL (<200) 06/14/19 03:45 HDL Cholesterol 29 mg/dL (40-60) L 06/14/19 03:45 Cholesterol/HDL Ratio 4.21 06/14/19 03:45 Home Medications: Amlodipine [Norvasc*] 10 mg PO DAILY 06/13/19 Atorvastatin Calcium 40 mg PO DAILY 06/13/19 Losartan Potassium 25 mg PO DAILY 06/13/19 hydroCHLOROthiazide [Hydrochlorothiazide*] 12.5 mg PO DAILY 06/13/19 Lactobacillus Acidophilus [Acidophilus Lactobacilli] 1 each PO BID #14 capsule 06/16/19 Sulfamethoxazole/Trimethoprim [Bactrim Ds Tablet] 1 each PO BID #22 tablet 06/16/19 New Medications: Lactobacillus Acidophilus [Acidophilus Lactobacilli] 1 each PO BID #14 capsule Sulfamethoxazole/Trimethoprim [Bactrim Ds Tablet] 1 each PO BID #22 tablet Patient Discharge Instructions: 1. Recommend follow up with a PCP to follow up this hospitalization and establish care. 2. Patient presented with sepsis secondary to acute left pyelonephritis/ureteritis/bacteremia. Patient was given IV antibiotic therapy and IV fluids. Patient responded well. Urine culture was positive for E coli. Blood culture was positive 2/4 with pantoea agglomerans. At discharge she is without significant nausea, vomiting or abdominal pain. At discharge she will continue with Bactrim DS 1 pill twice daily for 11 more days. Will also provide lactobacillus twice daily. Recommend recheck blood culture and urine culture after treatment to monitor resolution. Recommend follow up with a PCP to follow up this hospitalization and continue her care. Patient may require Urology evaluation in the future if symptoms persist. 3. Patient had elevated troponin upon admission. Cardiology was consulted. Echocardiogram performed. This was likely related to sepsis. Further cardiac intervention was required. Recommend follow up with cardiology in 1-2 weeks to follow up this hospitalization. Patient will require outpatient cardiac evaluation with cardiac stress test to further evaluate especially with her risk factors of hypertension. 4. Patient with electrolyte abnormalities. This was likely related to sepsis. This corrected with protocol. 5. Patient had elevated liver function. This was likely related to sepsis. CT scan did show mild fatty liver. Will provide education on fatty liver. Patient may benefit with GI evaluation as an outpatient. 6. Patient with hypertension. Medications were held initially due to sepsis. Patient now back on her regular regimen. At discharge she will continue with Norvasc 10 mg daily, losartan 25 mg daily, and hydrochlorothiazide 12.5 mg daily. Recommend to maintain blood pressure less 150/80. Further adjustment can be done by her PCP. 7. Patient with hyperlipidemia. Patient currently on Lipitor 40 mg daily. With noted elevated liver function, will recommend to hold Lipitor and recheck fasting lipid and liver function tests in 1-2 weeks. Her fasting lipid panel was well controlled during her hospital stay. May need to at wave risk and benefit of restarting Lipitor if liver function still elevated as an outpatient. 8. Patient with chronic back pain. CT scan showed degenerative changes to the lumbar spine. Patient would benefit with pain management evaluation as an outpatient. Will recommend to not use any further nonsteroidal anti-inflammatories. Patient may take Tylenol as needed. Diet: AHA Activity: Ad terry Time spent managing pt's care (in minutes): 55
[2019-06-16] MEDS ORDERED: CEFTRIAXONE/SWI 1gm 1 GM/10 ML SYR IVP SCH (21:00)
[2019-06-16] MEDS ORDERED: SMZ./TMP. 800/160 MG TABLET PO SCH (21:00)
--- NOTE | 2019-06-17 08:18 | ECHO ---
HEIGHT: 5 ft 1 in WEIGHT: 176 lb 9.6 oz DATE OF STUDY: 06/16/[address]: Osman Sena DO 2-DIMENSIONAL: YES M.MODE: YES DOPPLER: YES COLOR FLOW: YES TDS: PORTABLE: DEFINITY: BUBBLE STUDY: DIAGNOSIS: ELEVATED TROPONIN, HISTORY OF HYPERTENSION PRESENTS WITH SEPSIS CARDIAC HISTORY: CATHERIZATION: NO SURGERY: NO PROSTHETIC VALVE: NO PACEMAKER: NO MEASUREMENTS (cm) DIASTOLIC (NORMALS) SYSTOLIC (NORMALS) IVSd 1.0 (0.6-1.2) LA Diam 3.2 (1.9-4.0) LVEF 58% LVIDd 4.4 (3.5-5.7) LVIDs 3.1 (2.0-3.5) %FS 30% LVPWd 1.1 (0.6-1.2) Ao Diam 2.1 (2.0-3.7) 2 DIMENSIONAL ASSESSMENT: RIGHT ATRIUM: NORMAL LEFT ATRIUM: NORMAL RIGHT VENTRICLE: NORMAL LEFT VENTRICLE: NORMAL TRICUSPID VALVE: NORMAL MITRAL VALVE: NORMAL PULMONIC VALVE: NORMAL AORTIC VALVE: NORMAL PERICARDIAL EFFUSION: NONE AORTIC ROOT: NORMAL LEFT VENTRICULAR WALL MOTION: NORMAL DOPPLER/COLOR FLOW: NORAMAL COMMENTS: NORMAL 2-DIMENSIONAL ECHOCARDIOGRAM WITH DOPPLER. NO WALL MOTION ABNORMALITY. NO EFFUSION. TECHNOLOGIST: LISA YAÑEZ
--- NOTE | 2019-06-17 08:26 | PN ---
Date of Progress Note: 06/16/2019 . Since she has been here, she had denied any chest pain, shortness of breath, PND, orthop ellen, pedal edema, palpitation, or syncope. Troponin was 0.04, which decreased from initial admission . Her creatinine is now 0.54 and her hemoglobin no chest pain. She has improved dramatic ally . Echocardiogram is pending. . I will make sure she has an outpatient eligio ointment to . RASHMI/GRACE Voice ID: [id number] Report ID: [id number]
== END 2019-06-16 13:01 | disposition home or self-care (01) | DRG 872 ==
LOC: ER 09:56 → ERHOLD 14:00 → 3RD-ICU 17:01 → 2ND 06-14 18:46
PROVIDERS: ADMIT Family Medicine; ATTEND Family Medicine
DX: A41.9 Sepsis, unspecified organism (principal); N10 Acute pyelonephritis; B96.20 Unspecified Escherichia coli [E. coli] as the cause of diseases classified elsewhere; N28.89 Other specified disorders of kidney and ureter; E83.42 Hypomagnesemia; E87.6 Hypokalemia; K76.0 Fatty (change of) liver, not elsewhere classified; I10 Essential (primary) hypertension; G89.29 Other chronic pain; M54.9 Dorsalgia, unspecified; E78.5 Hyperlipidemia, unspecified; D25.9 Leiomyoma of uterus, unspecified; D64.9 Anemia, unspecified; R65.20 Severe sepsis without septic shock; R79.89 Other specified abnormal findings of blood chemistry; Z79.899 Other long term (current) drug therapy
CPT/HCPCS: 36415; 71045; 71260; 74177; 80048; 80061; 80076; 81003; 81015; 83036; 83605; 83735; 83880; 84132; 84145; 84439; 84443; 84484; 85025; 85610; 87040; 87045; 87046; 87070; 87077; 87081; 87086; 87088; 87186; 87205; 87324; 87449; 87804; 93005; 93306; 96361; 96365; 96366; 96367; 96375; 99284; 99285; J0696; J1644; J3475; J7030; J7040; P9047; Q9967; U0001; U0002

== ENCOUNTER 2019-12-17 07:53 | Inpatient (IN) | payer OTHER ==
--- NOTE | 2019-12-12 09:20 | RAD REPORT ---
EXAM DESCRIPTION: RAD - Chest Pa And Lat (2 Views) - 12/12/2019 9:10 am CLINICAL HISTORY: PRE OP Chest pain. COMPARISON: Chest Single View dated 06/13/2019; Chest Single View dated 06/11/2019; Chest Pa And Lat ( 2 Views) dated 05/23/2016; CHEST SINGLE VIEW dated 09/17/2013 FINDINGS: The lungs are clear. The heart is normal in size. No displaced fractures. IMPRESSION: No acute or concerning finding suspected.
[2019-12-12 10:13] LABS: Absolute Lymphocytes (CBC) 3.3 K/uL (0.7-4.9); Basophils % 0.6 % (0-1.3); Lymphocytes % 51.2 % (15.3-44.8); MPV 7.3 fL (7.6-11.3); RBC Red Blood Cell Count 4.41 M/uL (3.86-4.86)
[2019-12-12 10:17] LABS: Protime INR 0.94
[2019-12-12 10:27] LABS: Potassium 3.8 mmol/L (3.5-5.1)
--- OUTSIDE RECORDS SUMMARY | 2019-12-17 07:55 | XMS REPORT | Clinical Summary ---
:[address] [facility] Address [address] [place] [address] Care Team Providers Name Role Phone Dr Rodriguez Primary Care Provider Unavailable Allergies No Known Allergies Medications Medication Sig Dispensed Refills Start Date End Date Status trimethoprim-polymyxin Place 1 drop into 10 mL 0 3 Active B 0.1-10,000 %-unit/mL the left eye Drop every 4 (four) hours. Active Problems Not on file Encounters Date Type Specialty Care Team Description 06/13/2019 Lab Requisition Lab after 12/16/2018 Social History Tobacco Use Types Packs/Day Years Used Date Former Smoker Alcohol Use Drinks/Week oz/Week Comments Yes 1-2 glasses of w ine per night Sex Assigned at Date Recorded Not on file Last Filed Vital Signs Not on file Plan of Treatment Not on file Procedures Procedure Name Priority Date/Time Associated Diagnosis Comme nts SARS-COV2/RT-PCR Routine 06/13/2019 11:25 AM Resu lts for this ([facility]) CDT procedure are in the results section. after 12/16/2018 Results SARS-CoV2/RT-PCR ([facility]) (06/13/2019 11:25 AM CDT) SARS-COV2/RT-PCR Not Detected Not Detected, [facility] Negative [facility] SARS-COV-2 [facility] PERFORMING LAB [facility] Specimen Other - Nasopharyngeal wall structure (b ulysses structure) Narrative Performed At Negative results do not preclude SARS-CoV-2 [facility] infection and should not be used as the sole basis for patient management decisions. Negative results must be combined with clinical observations, patient history, and epidemiological information. A false negative result may occur if a specimen is improperly collected, transported or handled. The limit of detection for this assay is 250 copies/mL. This SARS CoV-2 test is a rapid, real-time RT-PCR test intended for the qualitative detection of nucleic acid from SARS-CoV-2 in a nasopharyngeal swab specimen collected from individuals suspected of COVID-19 by their healthcare provider. This test has not been Food and Drug Administration (FDA) cleared or approved and has been authorized by FDA under an Emergency Use Authorization (EUA). This EUA will be effective until the declaration that circumstances exist justifying the authorization of the emergency use of in vitro diagnostic tests for detection and/or diagnosis of COVID-19 is terminated under Section 564(b)(2) of the Act or the EUA is revoked under Section 564(g) of the Act. Fact Sheet for Healthcare Providers: https://www.[employer]/Documents/Xpert%20Xpre ss%20SARS%20CoV-2/Fact%20Sheets/3023802%20SAR S-COV-2%20HEALTHCARE%20PROVIDERS%20FACT%20SHEE T.pdf Fact Sheet for Healthcare Patients: https://www.[employer]/Documents/Xpert%20Xpre ss%20SARS%20CoV-2/Fact%20Sheets/3023801%20SAR S-COV-2%20PATIENT%20FACT%20SHEET.pdf Performing Laboratory: [address] [place] [address] Performing Organization Address City/State/Zipcode Phone Number [facility] [address] [place] [phone] CENTER after 12/16/2018 Insurance Payer Benefit Plan / Subscriber ID Effective Dates Phone Addre ss Type Group CIGNA - MGD CIGNA [id number] 2012-Present HMO/POS CARE HMO/POS/OPEN ACCESS
--- OUTSIDE RECORDS SUMMARY | 2019-12-17 07:55 | XMS REPORT | Continuity of Care Document ---
:1955 [address] [facility] [place] Address [address] [place] [address] Care Team Providers Name Role Phone Frias Primary Care Physician Unavailable Payers Payer Name Policy Type Policy Number Effective Date Expiration Date S jose CIGNA - MGD [id number] 2012 [facility] CARECIGNA 00:00:00 - Medical HMO/POS/OPEN Center [id number] 2012-Presen tHMO/POS Problems This patient has no known problems. Allergies, Adverse Reactions, Alerts This patient has no known allergies or adverse reactions. Social History Social Habit Start Date Stop Date Quantity Comments Source Sex Assigned At [facility] Alcohol intake 2012-11-18 2012-11-18 Current drinker [facility] [employer] [facility] [facility] - 00:00:00 00:00:[address] [facility] (finding) Alcohol Comment 2012-11-18 2012-11-18 1-2 glasses of CBIT A/S S t LuGetO2 - 00:00:00 00:00:00 wine per night Medical Ce nter Smoking Status Start Date Stop Date Source Former smoker 2012-11-18 00:00:00 2012-11-18 00:00:00 [facility] Medications Ordered Filled Start Stop Current Ordering Indication Dosage Frequency Signature Comments Components Source Medication Medication Date Date Medication? Clinician (SIG) Name Name trimethopri Yes 1[drp] Place [address] m-polymyxin 9-30 drop into Li es - B 00:00: the left Medical 0.1-10,000 00 eye every Cent er %-unit/mL 4 (four) Drop hours. Amlodipine Amlodipine Yes Gus not [facility] Besylate Besylate Gong defined [facility] Hydrochloro Hydrochloro Yes Gus not [facility] thiazide thiazide Gong defined [facility] losartan losartan Yes Gus not [facility] Gong defined [facility] [place] Yes Gus not [facility] Gong defined [facility] Diclofenac Diclofenac Yes Gus not [facility] Sodium ER Sodium ER Gong defined [facility] atorvastati atorvastati Yes Gus not [facility] n n Gong defined [facility] Sulfamethox Sulfamethox Yes Gus not [facility] azole-Trime azole-Trime Gong defined [facility] Carisoprodo Carisoprodo Yes Gus not [facility] l Gong defined [facility] Procedures Procedure Date / Time Performed Performing Clinician Sourc e SARS-COV2/RT-PCR ([facility] 2019-06-13 11:25:00 [facility] Encounters Start End Encounter Admission Attending Care Care Encounter Source Date/Time Date/Time Type Type Clinicians Facility Department ID 2019-12-11 2019-12-11 [id number] 2019-10-14 2019-10-14 [place] [place] [id number] [facility] [address] 13:[facility] 2019-09-18 2019-09-18 [place] [place] [id number] 14:30[facility]00 14:30[facility]00 [facility] 2019-08-25 2019-08-25 [facility] [place] [id number] 11:41[facility]00 11:41[facility]00 [facility] 2019-07-01 2019-07-01 [facility] [id number] 15:20[facility]00 15:20[facility]00 [facility] 2019-07-01 2019-07-01 [facility] [id number] 08:30[facility]00 08:30[facility] 2018-10-29 2018-10-29 [facility] [id number] 13:30[facility] 13:30[facility]00 [facility] 2018-10-22 2018-10-22 [facility] [id number] 15:[facility] 15:00[facility] 2018-10-15 2018-10-15 [facility] [id number] 08:[facility] 08:00[facility] Results Test Description Test Time Test Comments Results Result Comments Source SARS-CoV2/RT-PCR ([facility]) 2019-06-13 21:38:00 Test Item Value Reference Range Interpretation Comme nts SARS-COV2/RT-PCR (test code = Not Detected Not Detected, Negative 50552-6) SARS-COV-2 PERFORMING LAB [facility] (test code = 11599-0) CLARA (test code = CLARA) Negative results do not preclude SARS-CoV-2 infection and should not be used as [...] of the Act. Fact Sheet for Healthcare Providers:https://www.[employer]/Documents/Xpert%20Xpress %20SARS%20CoV-2/Fact%20Sheets /302-3802%50KEWV-HVI-2%20HEAL THCARE%20PROVIDERS%20FACT%20S HEET.pdf Fact Sheet for Healthcare Patients:https://www.[employer]/Documents/Xpert%20Xpress% 20SARS%20CoV-2/Fact%20Sheets/ 302-3801%76XNHL-BXH-3%20PATIE NT%20FACT%20SHEET.pdf Performing Laboratory:[place] [address] [address]OV2/RT-PCR ([facility])2019-06-13 21:38:00 Test Item Value Reference Range Interpretation Comments SARS-COV2/RT-PCR (test Not Detected Not Detected, Negative code = 3497553) SARS-COV-2 PERFORMING LAB [facility] (test code = 2462520) Negative results do not preclude SARS-CoV-2 infection and should not be used as the sole basis for patient management decisions. Negative results must be combined with clinical observations, patient history, and epidemiological information. A false negative result may occur if a specimen is improperly collected, transported or handled.The limit of detection for this assay is 250 copies/mL.This SARS CoV-2 test is a rapid, real-time RT-PCR test intended for the qualitative detection of nucleic acid from SARS-CoV-2 in a nasopharyngeal swab specimen collected from individuals suspected of COVID-19 by their healthcare provider.This test has not been Food and Drug [...] is revoked under Section 564(g) of the Act.Fact Sheet for Healthcare Pro viders:https://www.[employer]/Documents/Xpert%20Xpress%20SARS%20CoV-2/Fact%20Sh eets/3023802%33LGEI-DRR-5%20HEALTHCARE%20PROVIDERS%20FACT%20SHEET.pdfFact Sheet for Healthcare Patients:https://www.[employer]TV/Documents/Xpert%20Xpress%20SARS%20CoV-2/Fact%20Sheets/3023801%20SARS-COV -2%20PATIENT%20FACT%20SHEET.pdfPerforming Laboratory:[facility] [place] [address]
--- OUTSIDE RECORDS SUMMARY | 2019-12-17 07:56 | XMS REPORT ---
:1955 Author Organization [employer] Care Team Providers Name Role Phone Gus Gong Provider Role Unavailable Allergies No Known Allergies Problems Problem Type Condition Code Onset Dates Condition Statu s Problem Primary osteoarthritis of right knee M17.11 Active Medications No Known Medications Results No Known Results Summary Purpose eClinicalWorks Submission
--- OUTSIDE RECORDS SUMMARY | 2019-12-17 07:56 | XMS REPORT ---
:1955 Author Organization [employer] Care Team Providers Name Role Phone Gus Gong Provider Role Unavailable Allergies, Adverse Reactions, Alerts Substance Reaction Event Type N.K.D.A. Info Not Available Non Drug Allergy Problems Problem Type Condition Code Onset Dates Condition Statu s Assessment Primary osteoarthritis of right M17.11 Active knee Problem Primary osteoarthritis of right M17.11 Active knee Assessment Pain, joint, knee, right M25.561 Act matt Medications No Known Medications Results No Known Results Summary Purpose eClinicalWorks Submission
--- OUTSIDE RECORDS SUMMARY | 2019-12-17 07:56 | XMS REPORT ---
:1955 Author Organization [facility] Address [address], [address] [place] [address] Care Team Providers Name Role Phone Gus Gong Unavailable [phone] PROBLEMS Type Condition ICD9-CM [id number] Onset Condition SNOMED Code Notes Code Code Dates Status Problem Primary M17.11 Active [id number] osteoarthritis of right knee ALLERGIES No Known Allergies ENCOUNTERS from 1955 to 2019-12-15 Encounter Location Date Provider Diagnosis [facility] [address] Nov, Gus belcher osteoarthritis [facility] [address] of right kne e M17.11 [place], [place] and Pain, joint , knee, [id number] right M25.561 IMMUNIZATIONS Vaccine Route Administration Date Status Bupivicaine [place] Unknown Oct 29, 2018 Administered Bupivicaine [place] Unknown Oct 22, 2018 Administered Bupivicaine [place] Unknown Oct 15, 2018 Administered Hyalgan 20 mg Unknown July 01, 2019 Administered Hyalgan 20 mg Unknown Oct 29, 2018 Administered Hyalgan 20 mg Unknown Oct 22, 2018 Administered Hyalgan 20 mg Unknown Oct 15, 2018 Administered SOCIAL HISTORY Tobacco Use: Social History Observation Description Date Details (start date - stop date) Never Smoker Sex Assigned At : Social History Observation Description Sex Assigned At Unknown Alcohol Screen Question Answer Notes Did you have a drink containing alcohol in the past Yes year? Points 1 Interpretation Negative How often did you have 6 or more drinks on one Never (0 poin ts) occasion in the past year? How many drinks did you have on a typical day when 1 or 2 (0 points) you were drinking in the past year? How often did you have a drink containing alcohol in Monthly or less (1 point) the past year? Tobacco Use/Smoking Question Answer Notes Are you a never smoker Additional Findings: Tobacco Non-User Current non-smoker REASON FOR REFERRAL No Information VITAL SIGNS Height 60 in Nov, Weight 177 lbs Nov, BMI 34.56 kg/m2 Nov, Blood pressure systolic 138 mm Hg Nov, Blood pressure diastolic 80 mm Hg Nov, MEDICATIONS Medication SIG (Take, Route, Frequency, Start Date End Date Status Duration) Amlodipine Besylate Active [place] Active Xarelto 10 MG 1 tablet Orally Once a day for 11 Nov, Active days PROCEDURES No Information RESULTS No Results REASON FOR VISIT F/U RT KNEE PAIN- XRAY MEDICAL (GENERAL) HISTORY Type Description Date Medical History Hypertension Medical History UTI turned kidney infection Medical History C-Darrion Surgical History left breast cyst biopsy Surgical History tummy tuck Hospitalization History UTI turned to kindey infection 06/09 19 Goals Section No Information Health Concerns No Information MEDICAL EQUIPMENT No Information MENTAL STATUS No Information FUNCTIONAL STATUS No Information ASSESSMENTS Encounter Date Diagnosis Notes Nov, Pain, joint, knee, right (ICD-10 - M25.5 61) Nov, Primary osteoarthritis of right knee (IC D-10 - M17.11) PLAN OF TREATMENT Medication Medication Name Sig Start Date Stop Date Xarelto 10 MG 1 tablet Orally Once a day for 11 days Nov, Treatment Notes Assessment Notes Clinical Notes Primary osteoarthritis of right knee I discussed with the ashley sanon at length her diagnosis and treatment plan and she expressed understanding. She has failed conservative treatment measures including corticosteroid/viscosupplementatio n injections, home exercise program and NSAIDs. Her pain interferes with her ADLs and she would like to proceed with right total knee arthroplasty. We will proceed with surgery next week. Treatment Notes Test Name Order Date X-RAY EXAM KNEE 1 OR 2 VIEWS ([id number]) 2019-12-15 X-RAY EXAM KNEE STANDING VIEW ([id number]) 2019-12-15 Next Appt Details 2 Weeks after surgery Reason: Provider Name:Gus Gong 2020-01-01 1 0:30:00 AM, [address], [address], [place], [address], Insurance Providers Payer Name Payer Address Payer Insured Patient Coverage Cover age Phone Name Relationship to Start Date End Date Insured MEDICARE Attn Part B [id number] MILTON SANTIAGO self [employer] Claims [address] [facility] [id number] [employer] OF [phone] MILTON SANTIAGO self [place] [phone]
[2019-12-17] MEDS ORDERED: TRANEXAMIC ACID 1,000 MG in NA CHLORIDE 0.9% 50 ML IV SCH (08:00)
[2019-12-17] MEDS ORDERED: Ringers Lactate 1,000 ML IV ONE ×2 (08:19→11:57)
[2019-12-17] MEDS ORDERED: CEFAZOLIN/SWI 2gm 2 GM/20 ML SYR ONE (08:19)
[2019-12-17] MEDS ORDERED: FENTANYL CITR 100 MCG/2 ML ONE ×2 (09:20→10:15)
[2019-12-17] MEDS ORDERED: KETOROLAC 30 MG/ML INJ ONE (09:20)
[2019-12-17] MEDS ORDERED: MIDAZOLAM HCL 2 MG/2 ML INJ ONE ×2 (09:20→10:14)
[2019-12-17] MEDS ORDERED: LIDOCAINE 2% MPF 5 ML VIAL ONE ×2 (09:20→10:21)
[2019-12-17] MEDS ORDERED: propofoL 200 MG/20 ML VIAL IV ONE ×2 (09:20→09:39)
[2019-12-17] MEDS ORDERED: NS 0.9% VIAL 10 ML ONE (09:21)
[2019-12-17] MEDS ORDERED: ONDANSETRON 4 MG/2 ML VIAL ONE (09:21)
[2019-12-17] MEDS ORDERED: BUPIVACAINE 0.25% PF 10 ML VIAL ONE (09:21)
[2019-12-17] MEDS ORDERED: KETAMINE HCL 500 MG/5 ML VIAL ONE (09:50)
[2019-12-17] MEDS ORDERED: BUPIVACA 0.25%/EPI 0.0005% MDV 50 ML VIAL ONE (10:10)
[2019-12-17] MEDS ORDERED: ROPLVACAINE HCL 0 ML ONE (10:18)
[2019-12-17] MEDS ORDERED: dexAMETHasone 4 MG/ML VIAL ONE (10:19)
[2019-12-17] MEDS ORDERED: HYDROMORPHONE HCL 1 MG/ML INJ ONE (11:19)
[2019-12-17] MEDS ORDERED: LABETALOL 20 MG/4ML SYRINGE IV ONE (12:24)
[2019-12-17] MEDS ORDERED: NALOXONE 0.4 MG/ML VIAL ONE (13:35)
[2019-12-17] MEDS ORDERED: carisoprodoL 350 MG TAB PO PRN (13:55)
--- NOTE | 2019-12-17 13:55 | P.BOP ---
Preoperative diagnosis: right knee osteoarthritis Postoperative diagnosis: same Primary procedure: right total knee arthroplasty Diffuser Operator: NONE,NONE Estimated blood loss: 20 cc Specimen: none Findings: see dictation Anesthesia: General Complications: None Drain(s): Urinary catheter Implants: Biomet Reese Persona 7 STD CR femur, tibia D, 29 patella, 10 mm CR poly Fluids & blood products: per anesthesia record; TT: 79 mins @ 300 mmHg Transferred to: Recovery Room Condition: Good
[2019-12-17] MEDS ORDERED: DOCUSATE NA 100 MG CAP PO PRN (13:56)
[2019-12-17 13:59] VITALS: O2SAT 100
[2019-12-17] MEDS ORDERED: TRAMADOL HCL 50 MG TAB PO PRN (13:59)
--- NOTE | 2019-12-17 14:31 | RAD REPORT ---
EXAM DESCRIPTION: RAD - Knee Right 2 View - 12/17/2019 2:24 pm CLINICAL HISTORY: Right knee surgery FINDINGS: Right knee arthroplasty has been performed Prosthesis is in good position. No fracture or dislocation
[2019-12-17] MEDS ORDERED: MORPHINE 2 MG/ML SYR IV PRN (14:48)
[2019-12-17 14:58] LABS: Hematocrit 36.3 % (36.0-45.0)
[2019-12-17 16:06] VITALS: BMI 34.5
--- NOTE | 2019-12-17 16:07 | P.CNS ---
Date of Consult: 12/17/19 Patient is an office patient of [facility]. She has a history of htn, hyperlipidemia and sleep apnea. The patient was admitted after a right knee replacement with Dr. Gong. The pateint is admitted for the night. She is doing well. 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 A/p 1. Right knee replacement Awaiting PT On Xarelto for 11 days 2 HTN on amlodipine 10mg, hctz 12.5mg po qday and losartan 3. Hyperlipidemia on atorvastain we can hold that at this time 4. Obstructive sleep apnea. Will start him on a bipap for the night
[2019-12-17] MEDS: HYDROCODONE/APAP 7.5/325 MG TAB PO PRN ×2 (16:10→20:19)
[2019-12-17] MEDS: CEFAZOLIN/SWI 2gm 2 GM/20 ML SYR IVP SCH (16:11)
[2019-12-17] MEDS ORDERED: INFLUENZA VACCINE (for 3y+) 0.5 ML DOSE IMVAC ONE (20:00)
[2019-12-17] MEDS ORDERED: PNEUMOCOCCAL VACCINE 0.5 ML IMVAC ONE (20:00)
--- NOTE | 2019-12-17 22:15 | P.OP ---
Preoperative diagnosis: right knee osteoarthritis Postoperative diagnosis: same Primary procedure: right total knee arthroplasty Anesthesia: general LMA Estimated blood loss: 20 cc Specimen: right knee bone remnants Findings: see dictation Operative Technique: Indication For Procedure: Rosario is a 64 year-old female presented to my clinic with signs, symptoms and x-ray findings consistent with a severe right knee osteoarthritis. I discussed with the patient at length risks and benefits associated with operative and nonoperative treatment. She had failed conservative treatment measures including corticosteroid and viscosupplementation injections. She expressed understanding and elected to proceed with operative treatment. Description Of Procedure: After informed consent was obtained, the patient was identified in the preoperative holding area. The right lower extremity was marked. The patient was then taken to the PACU where she underwent a right lower extremity adductor canal block performed by Anesthesia. She was then taken to the operating room, transferred to the operating table in supine fashion, and placed under general anesthesia. Her right lower extremity was then prepped anddraped in usual sterile fashion. A time-out was initiated. The correct patient and procedure were confirmed and identified. The patient did receive her preoperative prophylactic antibiotics. The right lower extremity was then exsanguinated and tourniquet was inflated to 300 mmHg. Approximately 15 cm longitudinal incision was made centered over the anterior aspect of the right knee. Dissection was then taken to the extensor mechanism and a medial parapatellar arthrotomy was performed. The patella was everted and dislocated laterally and the knee was flexed in the fat pad. Medial lateral meniscus and ACL were all excised exposing the distal femur. Excess hypertrophic synovium was also excised within the suprapatellar pouch. The patient had MRIs of her right knee and cutting block was then placed over the distal femur and pins were then placed. The distal femoral cutting block was then placed over the pins. Knee joint was then used to ensure proper depth cut and the distal femur was then cut. The chamfer cutting guide was then placed over the distal end of the femur. Anterior, posterior cuts as well as anterior and posterior chamfer cuts were then made again confirming proper depth of the cut using an Shahriar wing. Excess bone remnants were then sent to pathology for further evaluation. Next, attention was taken to the proximal tibia. A tibial jig and tibial cutting block was then placed on proximal aspect of the right tibia and locked into position. Pins were then placed and alignment guide was then used to confirm proper alignment of the cut and then coronal and sagittal planes. Once this was confirmed, the cutting jig was placed over the pins and the proximal tibia was cut. Sizing trays were then selected and size 10 mm spacer was used and there was good overall balance in flexion and extension. Next, the trial implants were then placed using the size 7 standard CR femur and a size D tibia with a 10 mm poly. There was overall good range of motion and good stability Trial implants were then removed. The wound was then irrigated thoroughly with normal saline and the knee was then injected with 30 cc of 0.5% Marcaine with epinephrine both in the posterior capsule and mediallateral gutters as well as quadriceps tendon and periosteum. The tibia was then punched. The femur was drilled. The cement was then prepared on the back table. Cement was then placed first on the tibial surface followed by size D tibia. Excess cement was removed with [place] elevators. Size 7 standard CR femur was then placed on the distal femur after cement was placed on the distal femur. Excess cement was then removed and a size 10 mm trial poly was then placed. The knee was held in extension as the cement hardened. Undersurface of the patella was prepared debriding osteophytes using rongeurs as well as osteophytes had been debrided off the proximal tibia with rongeurs and osteotomes to aid with the medial tightness. Cement was placed on the undersurface of the patella after it was cut and a size 29 patella was placed. Once the cement was hardened, the knee was ranged, there was good overall stability both in flexion, extension and as well as stability with varus and valgus stresses. Trial poly was then removed and a size 10 mm CR poly was then placed and locked into position. The knee was then ranged again. There was good overall range of motion both for flexion and extension with good stability. The wound was then irrigated again thoroughly with normal saline using pulse lavage. Tourniquet was let down. Hemostasis was achieved using Bovie electrocautery. Extensor mechanism was then approximated using a #1 Vicryl bothin interrupted and running fashion. The fascia was then approximated using 0 Vicryl. Subcutaneous tissue was approximated with a 2-0 Vicryl. Skin was approximated using yolanda. Sterile dressings were applied. The patient was awakened and transferred back in stable condition. Postoperative Plan: Physical Therapy will be consulted to aid with mobilization and we will plan on keeping her for 2 midnights. Complications: None Drain(s): Urinary catheter Implants: Biomet Reese Persona 7 STD Femur, D tibia, 29 patella, 10 mm CR poly Fluids & blood products: per anesthesia record; TT: 79 mins @ 300 mmHg Transferred to: Recovery Room Condition: Good
[2019-12-18] MEDS: HYDROCODONE/APAP 7.5/325 MG TAB PO PRN ×6 (00:49→21:38)
[2019-12-18] MEDS: CEFAZOLIN/SWI 2gm 2 GM/20 ML SYR IVP SCH ×2 (00:50→09:24)
[2019-12-18] MEDS: ENOXAPARIN 30 MG/0.3 ML SQ SCH ×3 (05:03→20:45)
[2019-12-18 06:20] LABS: Potassium 4.5 mmol/L (3.5-5.1)
[2019-12-18 06:22] LABS: Absolute Lymphocytes (CBC) 2.5 K/uL (0.7-4.9); Basophils % 0.1 % (0-1.3); Lymphocytes % 20.5 % (15.3-44.8); MPV 7.3 fL (7.6-11.3)
--- NOTE | 2019-12-18 08:51 | P.PN ---
Subjective Date of Service: 12/18/19 Subjective: Improving (no fevers, chills, chest pain or sob. Her pain is controlled with scheduled norco) Review of Systems 10-point ROS is otherwise unremarkable Physical Examination - Vital Signs Temperature: 97.7 F Blood Pressure: 114/58 Pulse: 63 Respirations: 18 Pulse Ox (%): 98 - Physical Exam General: Alert, In no apparent distress HEENT: Atraumatic, PERRLA, EOMI Neck: Supple, JVD not distended Respiratory: Clear to auscultation bilaterally, Normal air movement Cardiovascular: Regular rate/rhythm, Normal S1 S2 Gastrointestinal: Normal bowel sounds, No tenderness Musculoskeletal: No tenderness Integumentary: No rashes Neurological: Normal speech, Normal tone, Normal affect Lymphatics: No axilla or inguinal lymphadenopathy - Studies Laboratory Data (last 24 hrs) 12/18/19 05:48: Sodium 139, Potassium 4.5, BUN 12, Creatinine 0.72, Glucose 146 H 12/18/19 05:48: WBC 12.4 H D, Hgb 11.5 L, Hct 33.0 L, Plt Count 248 12/17/19 14:37: Hgb 12.6, Hct 36.3 Assessment & Plan - Problems (Diagnosis) (1) Status post right knee replacement Current Visit: Yes Status: Acute Plan: doing well. Possible PT today and discharge tomorrow. This is of course Dr Gong's decision. (2) HTN (hypertension) Current Visit: Yes Status: Acute Plan: stable on home medications. Qualifiers: Hypertension type: essential hypertension Qualified Code(s): I10 - Essential (primary) hypertension (3) Hyperlipidemia Current Visit: Yes Status: Acute Plan: continue home statin Qualifiers: Hyperlipidemia type: mixed hyperlipidemia Qualified Code(s): E78.2 - Mixed hyperlipidemia (4) Sleep apnea Current Visit: Yes Status: Acute Plan: can use her home cpap Discharge Plan: Home Plan to discharge in: 24 Hours - Code Status/Comfort Care Code Status Assessed: No Physician Review: Patient Assessed, Agree with Above Assessment and Plan Critical Care: No Time Spent Managing Pts Care (In Minutes): 15
[2019-12-18] MEDS: ATORVASTATIN 40 MG TAB PO SCH (09:00)
[2019-12-18] MEDS ORDERED: HOME MED 1 EA UNK (Losartan Potassium [Losartan Potassium] 25 MG) PO SCH (09:00)
[2019-12-18] MEDS ORDERED: LOSARTAN POTASSIUM 50 MG TABLET PO SCH (09:00)
[2019-12-18] MEDS: CELECOXIB 100 MG CAPSULE PO SCH (09:22)
[2019-12-18] MEDS: LOSARTAN POTASSIUM 50 MG TABLET PO SCH (09:23)
[2019-12-18] MEDS: hydroCHLOROthiazide 12.5 MG CAP PO SCH (09:23)
--- NOTE | 2019-12-18 13:09 | P.PN ---
Subjective Date of Service: 12/18/19 Chief Complaint: s/p R TKA Subjective: Ambulating, Improving, Working w/ PT pain controlled; ambulated with PT this AM Physical Examination - Vital Signs Temperature: 97.7 F Blood Pressure: 114/58 Pulse: 63 Respirations: 18 Pulse Ox (%): 98 - Physical Exam General: Alert, In no apparent distress, Oriented x3 Musculoskeletal: Other (RLE: dressing c/d/i; no significant swelling; +EHL/FHL/GSC/TA; sensation grossly intact distally) - Studies Laboratory Data (last 24 hrs) 12/18/19 05:48: Sodium 139, Potassium 4.5, BUN 12, Creatinine 0.72, Glucose 146 H 12/18/19 05:48: WBC 12.4 H D, Hgb 11.5 L, Hct 33.0 L, Plt Count 248 12/17/19 14:37: Hgb 12.6, Hct 36.3 Assessment And Plan - Plan Rosario is a 64 yo female s/p R TKA POD#1 -PT to continue to mobilize; WBAT RLE -lovenox for DVT prophylaxis -likely d/c tomorrow after AM PT Physician Review: Patient Assessed, Agree with Above Assessment and Plan
[2019-12-18] MEDS ORDERED: ONDANSETRON 4 MG/2 ML VIAL IV PRN (15:52)
[2019-12-19] MEDS: HYDROCODONE/APAP 7.5/325 MG TAB PO PRN ×2 (02:13→09:10)
[2019-12-19] MEDS ORDERED: HYDROMORPHONE HCL 0.5 MG/0.5 ML INJ IV ONE (08:48)
[2019-12-19] MEDS: ATORVASTATIN 40 MG TAB PO SCH (09:00)
[2019-12-19] MEDS: ENOXAPARIN 30 MG/0.3 ML SQ SCH (09:11)
[2019-12-19] MEDS: CELECOXIB 100 MG CAPSULE PO SCH (09:11)
[2019-12-19] MEDS: hydroCHLOROthiazide 12.5 MG CAP PO SCH (09:11)
[2019-12-19] MEDS: LOSARTAN POTASSIUM 50 MG TABLET PO SCH (09:11)
--- NOTE | 2019-12-19 09:32 | P.PN ---
Subjective Date of Service: 12/19/19 Chief Complaint: s/p R TKA Subjective: Worsening (pain) Review of Systems 10-point ROS is otherwise unremarkable Musculoskeletal: Other (right knee pain ) Physical Examination - Vital Signs Temperature: 98.3 F Blood Pressure: 141/65 Pulse: 81 Respirations: 16 Pulse Ox (%): 96 - Physical Exam General: Alert, In no apparent distress HEENT: Atraumatic, PERRLA, EOMI Neck: Supple, JVD not distended Respiratory: Clear to auscultation bilaterally, Normal air movement Cardiovascular: Regular rate/rhythm, Normal S1 S2 Gastrointestinal: Normal bowel sounds, No tenderness Musculoskeletal: No tenderness Integumentary: No rashes Neurological: Normal speech, Normal tone, Normal affect Lymphatics: No axilla or inguinal lymphadenopathy Assessment & Plan - Problems (Diagnosis) (1) Status post right knee replacement Current Visit: Yes Status: Acute Plan: doing well. Possible PT today and discharge tomorrow. This is of course Dr Gong's decision. 12/18 Will give her a one time dose of dilaudid (2) HTN (hypertension) Current Visit: Yes Status: Acute Plan: stable on home medications. Qualifiers: Hypertension type: essential hypertension Qualified Code(s): I10 - Essential (primary) hypertension (3) Hyperlipidemia Current Visit: Yes Status: Acute Plan: continue home statin Qualifiers: Hyperlipidemia type: mixed hyperlipidemia Qualified Code(s): E78.2 - Mixed hyperlipidemia (4) Sleep apnea Current Visit: Yes Status: Acute Plan: can use her home cpap Discharge Plan: Home Plan to discharge in: 24 Hours - Code Status/Comfort Care Code Status Assessed: No Physician Review: Patient Assessed, Agree with Above Assessment and Plan Critical Care: No Time Spent Managing Pts Care (In Minutes): 20
--- NOTE | 2019-12-19 10:20 | P.DS ---
Admission Date: 12/17/19 Discharge Date: 12/19/19 Disposition: DC HOME/HOME HEALTH CARE Discharge Condition: GOOD Reason for Admission: s/p R TKA Consultations: Dr. Vigil Procedures: right total knee arthroplasty on 12/17/19 Brief History of Present Illness: Rosario is an 64 yo female s/p right total knee arthroplasty on 12/17/19 without complication. She was admitted to the floor in stable condition. Hospital Course: Rosario did well postoperatively and ambulated on the morning after surgery. Dr. Vigil was consulted to aid with medical management. Patient was started on Lovenox on POD#1 for DVT prophylaxis. Physical therapy was consulted to aid with mobilization and she was discharged on 12/19/19 in stable condition with her pain controlled. Vital Signs/Physical Exam: Temp Pulse Resp BP Pulse Ox 98.3 F 81 16 141/65 H 96 12/19/19 09:32 12/19/19 09:32 12/19/19 09:32 12/19/19 09:32 12/19/19 09:32 Laboratory Data at Discharge: WBC 12.4 K/uL (4.3-10.9) H D 12/18/19 05:48 Hgb 11.5 g/dL (12.0-15.0) L 12/18/19 05:48 Hct 33.0 % (36.0-45.0) L 12/18/19 05:48 Plt Count 248 K/uL (152-406) 12/18/19 05:48 PT 11.1 SECONDS (9.5-12.5) 12/12/19 08:53 INR 0.94 12/12/19 08:53 APTT 33.3 SECONDS (24.3-36.9) 12/12/19 08:53 Sodium 139 mmol/L (136-145) 12/18/19 05:48 Potassium 4.5 mmol/L (3.5-5.1) 12/18/19 05:48 BUN 12 mg/dL (7-18) 12/18/19 05:48 Creatinine 0.72 mg/dL (0.55-1.3) 12/18/19 05:48 Glucose 146 mg/dL (74-106) H 12/18/19 05:48 Home Medications: Atorvastatin Calcium 40 mg PO DAILY 06/13/19 Losartan Potassium 25 mg PO DAILY 06/13/19 Hydrocodone Bit/Acetaminophen [Hydrocodon-Acetaminoph 7.5-325] 1 each PO DAILYPRN PRN 12/12/19 carisoprodoL [Soma*] 350 mg PO TIDP PRN 12/12/19 hydroCHLOROthiazide [Hydrochlorothiazide*] 12.5 mg PO DAILY 12/12/19 Hydrocodone 7.5/APAP 325 [[place] 7.5/325 mg*] 1 tab PO Q4H PRN tab 12/19/19 Patient Discharge Instructions: Keep dressing clean, dry, intact. Begin Xarelto tomorrow, 12/20/19, AM with breakfast for DVT prophylaxis. Followup with Dr. Gong in 2 weeks for staple removal. Diet: Regular Activity: Weight bearing as tolerated Followup: Calixto Vigil MD [Primary Care Provider] - Gus Gong MD [ACTIVE - CAN ADMIT] - 1-2 Weeks
[2019-12-19 12:44] VITALS: BP 134/76; TEMP 97.3
== END 2019-12-19 12:14 | disposition home health service (06) | DRG 470 ==
LOC: OR 07:53 → 2ND 14:29
PROVIDERS: ADMIT Orthopaedic Surgery Sports Medicine; ATTEND Orthopaedic Surgery Sports Medicine
PROC: 0SRC0J9 Replacement of Right Knee Joint with Synthetic Substitute, Cemented, Open Approach (ICD-10-PCS; principal; 2019-12-17 10:30)
DX: M17.11 Unilateral primary osteoarthritis, right knee (principal); E78.2 Mixed hyperlipidemia; G47.33 Obstructive sleep apnea (adult) (pediatric); I10 Essential (primary) hypertension; Z79.899 Other long term (current) drug therapy; Z79.891 Long term (current) use of opiate analgesic; Z20.828 Contact with and (suspected) exposure to other viral communicable diseases
CPT/HCPCS: 36415; 71046; 80048; 85014; 85018; 85025; 85610; 85730; 88304; 88305; 88311; 94010; 97110; 97116; 97139; 97161; 97530; J0690; J1100; J1170; J1650; J2250; J2270; J2310; J2405; J2704; J2795; J3010; J7120; U0002

== ENCOUNTER → 2023-05-08 | Emergency (ER) | payer OTHER ==
[~2023-05-08] MED LIST: MORPHINE 4 MG/ML SYR ONE; ONDANSETRON 4 MG/2 ML VIAL ONE
[2023-05-08 19:26] LABS: Absolute Eosinophils 0.1 K/uL (0-0.5); Absolute Monocytes 0.8 K/uL (0.1-1.3); Absolute Neutrophil 5.5 K/uL (1.8-8.0); Basophils % 0.3 % (0-1.3); Eosinophils % 0.7 % (0-4.4); Hematocrit 37.1 % (36.0-45.0); Hemoglobin 12.6 g/dL (12.0-15.0); Lymphocytes % 32.2 % (15.3-44.8); MCHC 34.1 g/dL (32.0-36.0); Monocytes % 8.2 % (3.3-12.3); Neutrophils % 58.6 % (41.7-73.7); Nucleated Red Blood Cells % 0.1 % (0-0); Platelets 277 thou/uL (152-406); RBC Red Blood Cell Count 4.21 M/uL (3.86-4.86); Red Cell Distribution Width 13.5 % (12.1-15.2)
[2023-05-08 19:27] LABS: PT Prothrombin Time 11.3 SECONDS (9.5-12.5); PTT, Activated Partial Thromb 32.6 SECONDS (24.3-36.9); Protime INR 1.03
[2023-05-08 19:34] LABS: Albumin 3.5 g/dL (3.4-5.0); Albumin/Globulin Ratio 0.9 (1.1-1.8); Anion Gap 7.9 mEq/L (5.0-15.0); Bilirubin Total 0.2 mg/dL (0.2-1.0); Globulin 3.8 g/dL (2.3-3.5); Potassium 3.9 mEq/L (3.5-5.1); Protein, Total 7.3 g/dL (6.4-8.2)
--- NOTE | 2023-05-08 20:43 | RAD REPORT ---
EXAM DESCRIPTION: CT - Soft Tissue Neck W/Contr CLINICAL HISTORY: Swelling;Pain COMPARISON: <Comparisons> TECHNIQUE All CT scans are performed using dose optimization technique as appropriate and may includ e automated exposure control or mA/KV adjustment according to patient size. FINDINGS: Nasopharyngeal tissues are normal in appearance. Fossa Rosenmller are normal. Parapharyngeal fat triangles are symmetric. Tongue base structures are normal. Epiglottis and aryepiglottic folds are normal. Piriform sinuses are well aerated. The vocal cords are normal in appearance. Inflamed lymph nodes are seen submental location largest measuring 9 mm. Moderate surrounding fat str anding is present. Skin thickening seen anterior chain without subcutaneous abscess with focal skin t hickening anteriorly measuring 5 mm. Salivary glands are normal in appearance. Upper lung putnam are clear. Included intracranial contents are unremarkable. IMPRESSION: Inflamed appearance to the anterior chin soft tissues submental region as detailed. No d rainable abscess
--- NOTE | 2023-05-08 21:35 | EDPHYS ---
Physician Documentation [facility] Name: Rosario Pleitez Age: 68 yrs Sex: Female : 1955 Arrival Date: 05/08/2023 Time: 17:28 Bed 7 Private MD: ED Physician Jakub Willams HPI: 05/07 21:42 This 68 yrs old Female presents to ER via Ambulatory with complaints of Facial Swelling kb - Abscess. 21:44 Patient is a 68-year-old female who presents for an abscess to her chin that started 4 kb to 5 days ago has gotten bigger with increasing redness. Denies fever, malaise, shortness of breath, difficulty swallowing.. Historical: - Allergies: 17:46 No Known Allergies; ap3 - PMHx: 17:46 Arthritis; Hypertension; ap3 - Immunization history:: Client reports having NOT received the Covid vaccine. Flu vaccine is not up to date. - Social history:: Smoking status: Reported history of juuling and/or vaping. ROS: 21:41 Constitutional: As per HPI kb Exam: 21:41 Constitutional: This is a well developed, well nourished patient who is awake, alert, kb and in no acute distress. Head/Face: Normocephalic, atraumatic. ENT: Moist Mucous membranes Cardiovascular: Regular rate Respiratory: Respirations even and unlabored. No increased work of breathing. Talking in full sentences MS/ Extremity: Pulses equal, no cyanosis. Neurovascular intact. Full, normal range of motion. Neuro: Awake and alert, GCS 15, oriented to person, place, time, and situation. Moves all extremities. Normal gait. 21:41 Skin: abscess, that is moderate sized, of the chin, with drainage, that is purulent, with surrounding cellulitis, that is moderate, Vital Signs: 17:44 BP 216 / 78; Pulse 83; Resp 17; Temp 98.3; Pulse Ox 100% ; Weight 80.74 kg; Height 5 ap3 ft. 0 in. ; Pain 10/10; 20:47 BP 193 / 78; Pulse 74; Resp 17; Pulse Ox 99% on R/A; rv 21:54 BP 177 / 76; Pulse 76; Resp 17; Temp 98; Pulse Ox 99% ; rv 17:44 Body Mass Index 34.76 (80.74 kg, 152.4 cm) ap3 17:44 Pain Scale: Adult ap3 Cayden Coma Score: 19:30 Eye Response: spontaneous(4). Motor Response: obeys commands(6). Verbal Response: rv oriented(5). Total: 15. MDM: 17:33 Patient medically screened. kb 21:42 Data reviewed: vital signs, nurses notes. kb 21:42 Differential diagnosis: abscess, allergic reaction, cellulitis, insect bite. kb Consideration of Admission/Observation Escalation of care including admission/observation considered. Admission considered for abscess and cellulitis but patient is afebrile, nontoxic in appearance, labs reassuring, CT shows no drainable abscess no airway compromise. Respirations are even and unlabored. Patient educated on strict return precautions and in agreement with outpatient follow-up at this time. Will return for any worsening symptoms.. Counseling: I had a detailed discussion with the patient and/or guardian regarding the historical points, exam findings, and any diagnostic results supporting the discharge/admit diagnosis, lab results, radiology results, the need for outpatient follow up, an ENT specialist, a general surgeon, to return to the emergency department if symptoms worsen or persist or if there are any questions or concerns that arise at home. 05/07 18:28 Order name: Blood Culture Adult (2) kb 05/07 18:28 Order name: CBC with Diff; Complete Time: 19:46 kb 05/07 18:28 Order name: CMP; Complete Time: 19:46 kb 05/07 18:28 Order name: Lactate w/ 2H reflex if indic.; Complete Time: 19:46 kb 05/07 18:28 Order name: Protime (+inr); Complete Time: 19:46 kb 05/07 18:28 Order name: Ptt, Activated; Complete Time: 19:46 kb 05/07 18:28 Order name: CT Soft Tissue Neck W/contr; Complete Time: 20:46 kb 05/07 18:28 Order name: EKG; Complete Time: 18:29 kb 05/07 18:28 Order name: Accucheck; Complete Time: 19:14 kb 05/07 18:28 Order name: Cardiac monitoring; Complete Time: 19:14 kb 05/07 18:28 Order name: EKG - Nurse/Tech; Complete Time: 19:14 kb 05/07 18:28 Order name: IV Saline Lock - Large Bore; Complete Time: 19:14 kb 05/07 18:28 Order name: Labs collected and sent; Complete Time: 19:14 kb 05/07 18:28 Order name: O2 Per Protocol; Complete Time: 18:36 kb 05/07 18:28 Order name: O2 Sat Monitoring; Complete Time: 18:36 kb 05/07 18:28 Order name: Vital Signs; Complete Time: 18:47 kb Administered Medications: 19:14 Drug: NS 0.9% IV 1000 ml IV at 100 ml/hr once Route: IV; Rate: 100 ml/hr; Site: right rv antecubital; 21:54 Follow up: IV Status: Completed infusion; IV Intake: 200ml rv 20:21 Drug: morphine IVP or IV 4 mg IVP once over 4 mins Route: IVP; Infused Over: 4 mins; pf1 Site: right antecubital; 21:55 Follow up: Response: No adverse reaction; Marked relief of symptoms rv 20:21 Drug: Ondansetron IVP 4 mg IVP once; over 2 minutes Route: IVP; Site: right antecubital;pf1 21:54 Follow up: Response: No adverse reaction; Marked relief of symptoms rv Disposition Summary: 05/08/23 21:34 Discharge Ordered Notes: Location: Home kb Condition: Stable kb Diagnosis - Cutaneous abscess of face - chin kb Followup: kb - With: Emergency Department - When: As needed - Reason: Worsening of condition Followup: kb - With: Private Physician - When: 2 - 3 days - Reason: Recheck today's complaints, Continuance of care, Re-evaluation by your physician Discharge Instructions: - Discharge Summary Sheet kb - Skin Abscess, [id number] kb Forms: - Medication Reconciliation Form kb - Thank You Letter kb - Antibiotic Education kb - Prescription Opioid Use kb - Patient Portal Instructions kb - Leadership Thank You Letter kb Prescriptions: - Cephalexin 500 mg Oral Capsule - take 1 capsule ORAL route every 8 hours for 10 days; 30 capsule; Refills: 0, kb Product Selection Permitted - Bactrim DS 800-160 mg Oral Tablet - take 1 tablet ORAL route every 12 hours for 10 days; 20 tablet; Refills: 0, kb Product Selection Permitted Signatures: Dispatcher [employer] Cecilia Traore, TONY-C TONY-Elizabeth Acevedo RN RN ap3 Jake Ovalle, RN RN rv Varinder, Venita, RN RN pf1
--- NOTE | 2023-05-08 21:35 | ER ---
Nurse's Notes [facility] Name: Rosario Pleitez Age: 68 yrs Sex: Female : 1955 Arrival Date: 05/08/2023 Time: 17:28 Bed 7 Private MD: Diagnosis: Cutaneous abscess of face-chin Presentation: 05/07 17:44 Chief complaint: Patient states: she started noticing a small "pimple" on her chin ap3 approx 4-5 days ago, that has since grown. she saw her PCP yesterday and he told her if it didn't get better she needed to come to the ER. Coronavirus screen: At this time, the client does not indicate any symptoms associated with coronavirus-19. Ebola Screen: No symptoms or risks identified at this time. Initial Sepsis Screen: Does the patient meet any 2 criteria? No. Patient's initial sepsis screen is negative. Does the patient have a suspected source of infection? No. Patient's initial sepsis screen is negative. Risk Assessment: Do you want to hurt yourself or someone else? Patient reports no desire to harm self or others. Onset of symptoms is unknown. 17:44 Method Of Arrival: Ambulatory ap3 17:44 Acuity: SHU 2 ap3 Triage Assessment: 17:47 General: Appears in no apparent distress. Behavior is calm, cooperative, appropriate ap3 for age. Pain: Complains of pain in chin and neck. Neuro: Level of Consciousness is awake, alert, obeys commands, Oriented to person, place, time, situation, Appropriate for age. Cardiovascular: Patient's skin is warm and dry. Respiratory: Airway is patent Respiratory effort is even, unlabored, Respiratory pattern is regular, symmetrical. Historical: - Allergies: 17:46 No Known Allergies; ap3 - PMHx: 17:46 Arthritis; Hypertension; ap3 - Immunization history:: Client reports having NOT received the Covid vaccine. Flu vaccine is not up to date. - Social history:: Smoking status: Reported history of juuling and/or vaping. Screenin:47 Abuse screen: Denies threats or abuse. Nutritional screening: No deficits noted. ap3 Tuberculosis screening: No symptoms or risk factors identified. 20:48 [facility] ED Fall Risk Assessment (Adult) History of falling in the last 3 months, rv including since admission No falls in past 3 months (0 pts) Score/Fall Risk Level 0 - 2 = Low Risk Oriented to surroundings, Maintained a safe environment, Educated pt \\T\\ family on fall prevention, incl call for assistance when getting out of bed, Assessed \\T\\ reinforced patient's understanding of fall precautions. Assessment: 19:30 General: Appears comfortable, Behavior is calm, cooperative. rv 19:30 Pain: Complains of pain in chin. Neuro: Level of Consciousness is awake, alert, obeys rv commands, Oriented to person, place, time, situation. Cardiovascular: Capillary refill < 3 seconds Patient's skin is warm and dry. Respiratory: Airway is patent Respiratory effort is even, unlabored, Breath sounds are clear bilaterally. GI: No signs and/or symptoms were reported involving the gastrointestinal system. : No signs and/or symptoms were reported regarding the genitourinary system. Derm: Skin is intact. Vital Signs: 17:44 BP 216 / 78; Pulse 83; Resp 17; Temp 98.3; Pulse Ox 100% ; Weight 80.74 kg; Height 5 ap3 ft. 0 in. ; Pain 10/10; 20:47 BP 193 / 78; Pulse 74; Resp 17; Pulse Ox 99% on R/A; rv 21:54 BP 177 / 76; Pulse 76; Resp 17; Temp 98; Pulse Ox 99% ; rv 17:44 Body Mass Index 34.76 (80.74 kg, 152.4 cm) ap3 17:44 Pain Scale: Adult ap3 [place] Coma Score: 19:30 Eye Response: spontaneous(4). Motor Response: obeys commands(6). Verbal Response: rv oriented(5). Total: 15. ED Course: 17:31 Patient arrived in ED. im 17:33 Cecilia Quarles FNP-C is [facility] kb 17:33 Jakub Willams MD is Attending Physician. kb 17:46 Triage completed. ap3 17:47 Arm band placed on right wrist. ap3 18:47 Meri Kay, AMADO is Primary Nurse. ph 19:05 Inserted saline lock: 20 gauge in right antecubital area, using aseptic technique. rv Blood collected. 19:30 Patient has correct armband on for positive identification. rv 19:30 Client placed on continuous cardiac and pulse oximetry monitoring. NIBP monitoring rv applied. secured entrance monitor on. 20:32 CT Soft Tissue Neck W/contr In Process Unspecified. EDMS 20:47 No provider procedures requiring assistance completed. rv 21:28 EKG done, by ED staff, reviewed by Cecilia BAUM. 21:55 IV discontinued, intact, bleeding controlled, No redness/swelling at site. Pressure rv dressing applied. Administered Medications: 19:14 Drug: NS 0.9% IV 1000 ml IV at 100 ml/hr once Route: IV; Rate: 100 ml/hr; Site: right rv antecubital; 21:54 Follow up: IV Status: Completed infusion; IV Intake: 200ml rv 20:21 Drug: morphine IVP or IV 4 mg IVP once over 4 mins Route: IVP; Infused Over: 4 mins; pf1 Site: right antecubital; 21:55 Follow up: Response: No adverse reaction; Marked relief of symptoms rv 20:21 Drug: Ondansetron IVP 4 mg IVP once; over 2 minutes Route: IVP; Site: right antecubital;pf1 21:54 Follow up: Response: No adverse reaction; Marked relief of symptoms rv Medication: 20:48 VIS not applicable for this client. rv Intake: 21:54 IV: 200ml; Total: 200ml. rv Outcome: 21:34 Discharge ordered by . kb 21:55 Discharged to home ambulatory, with family, rv 21:55 Condition: good 21:55 Discharge instructions given to patient, Instructed on discharge instructions, follow up and referral plans. medication usage, Demonstrated understanding of instructions, follow-up care, medications, wound care, Prescriptions given X 2, 21:55 Patient left the ED. rv Signatures: Dispatcher [employer] EDIA Cecilia Quarles FNP-C FNP-Meri Holden, RN RN Elizabeth Sue RN RN ap3 Jake Ovalle RN RN Karol Garcia Pamala, RN RN pf1 Shaniqua Pugh
[2023-05-08 22:12] VITALS: BP 177/76; TEMP 98; O2SAT 99
== END ==
LOC: ER 17:28
DX: L02.01 Cutaneous abscess of face (principal); L03.211 Cellulitis of face
CPT/HCPCS: 87040 ×2; 85025; 36415; 85610; 83605; 85730; 80053; 70491; Q9967; J2405; 93005